=== PATIENT | male | born 1975 | race Asian ===

== ENCOUNTER 2023-05-01 12:07 | Inpatient (IN) | payer OTHER ==
[~2023-05-01] VITALS: Ht 182.9 cm; Wt 91.5 kg
[2023-05-01] MEDS ORDERED: NS 1,000 ML IV SCH ×4 (13:45→19:00)
[2023-05-01] MEDS ORDERED: Acetaminophen 500 MG Tab PO ONE (14:15)
[2023-05-01 14:33] LABS: International Normalized Ratio 3.69
[2023-05-01 14:39] LABS: Albumin, Blood 1.7 g/dL (3.4-5.0); Albumin/Globulin Ratio 0.3 (0.8-1.8); Bilirubin, Direct 4.6 mg/dL (0.0-0.3); Bilirubin, Total 5.6 mg/dL (0.1-1.0); Bun/Creatinine Ratio 16.5 (12.0-20.0); Calcium, Blood 8.3 mg/dL (8.5-10.1); Creatinine, Blood 2.12 mg/dL (0.60-1.20); Globulin, Blood 4.9 g/dL (2.2-4.0); Potassium, Blood 3.6 mmol/L (3.5-5.5); Total Protein, Blood 6.6 g/dL (6.4-8.2)
[2023-05-01 14:53] LABS: Influenza A, PCR NEGATIVE (NEGATIVE); Influenza B, PCR NEGATIVE (NEGATIVE); Resp Syncytial Virus, PCR NEGATIVE (NEGATIVE); SARS-Cov-2 (COVID-19) PCR, MMC NEGATIVE (NEGATIVE)
[2023-05-01] MEDS ORDERED: Azithromycin 250 MG Tab PO ONE (14:55)
[2023-05-01] MEDS ORDERED: Sodium Bicarb 8.4% 1 MEQ/ML 50 ML Vial IV ONE (16:05)
[2023-05-01 16:20] LABS: Base Excess Venous -17.7 mmol/L; Bicarbonate Venous 12.1 mmol/L (24.0-30.0); PCO2 Venous 21.7 mmHg (38-42); pH Blood Venous 7.25 (7.34-7.37)
[2023-05-01 17:07] LABS: Source, Urine Clean Catch
[2023-05-01] MEDS ORDERED: Sodium Bicarb 8.4% 1 MEQ/ML 50 ML Vial ONE (17:08)
[2023-05-01 17:09] LABS: Appearance, Urine Hazy (Clear); Blood, Urine 5+ (Neg); Color, Urine Amber (P-Yellow); Glucose Qualitative, Urine Neg (Neg); Ketones, Urine Neg (Neg); Leukocyte Esterase, Urine 1+ (Neg); Nitrite, Urine Neg (Neg); Protein, Urine 2+ (Neg); Specific Gravity, Urine 1.025 (1.003-1.022); Urobilinogen, Urine 1+ (Normal)
[2023-05-01 17:25] LABS: Bilirubin, Urine 2+ (Neg)
[2023-05-01] MEDS ORDERED: FLU VACC QS2023-24(6MOS UP)/PF 60 MCG/0.5 ML SYRINGE IM SCH (17:25)
[2023-05-01] MEDS ORDERED: Magnesium Hydroxide Conc 10 ML UDC PO PRN (17:25)
[2023-05-01 17:26] LABS: Bacteria Many /hpf; Hyaline Casts 0-2 /lpf (0-2); Renal Epithelial Rare /hpf (0-Rare); Squamous Epithelial Cells Few /hpf (Few)
[2023-05-01] MEDS ORDERED: Azithromycin 500 MG in NS 250 ML IV SCH (18:00)
[2023-05-01 18:01] LABS: Percent Saturation 5.7 % (20.0-50.0)
[2023-05-01 19:00] VITALS: BP 92/54
[2023-05-01 19:30] VITALS: BP 101/58
[2023-05-01 20:00] VITALS: BP 96/56
[2023-05-01 20:30] VITALS: BP 94/56
[2023-05-01 21:00] VITALS: BP 89/56
[2023-05-01] MEDS ORDERED: Lactobacil 2-S.Thermo-Bifido 1 1 Cap PO SCH (21:00)
[2023-05-01 21:17] LABS: Source, Urine Foley catheter
[2023-05-01 21:23] LABS: Appearance, Urine Hazy (Clear); Blood, Urine 5+ (Neg); Color, Urine Amber (P-Yellow); Glucose Qualitative, Urine Neg (Neg); Ketones, Urine Neg (Neg); Leukocyte Esterase, Urine 1+ (Neg); Nitrite, Urine Neg (Neg); Protein, Urine 2+ (Neg); Specific Gravity, Urine 1.025 (1.003-1.022); Urobilinogen, Urine 1+ (Normal)
[2023-05-01 21:27] LABS: Acetaminophen, Random 11.9 ug/mL (10.0-30.0); Magnesium, Blood 1.6 mg/dL (1.6-2.4); Phosphorus, Blood 4.8 mg/dL (2.5-4.9)
[2023-05-01 21:31] LABS: Bilirubin, Urine 2+ (Neg)
[2023-05-01 21:33] LABS: Bacteria Many /hpf; Hyaline Casts 0-2 /lpf (0-2); Renal Epithelial Rare /hpf (0-Rare); Squamous Epithelial Cells Rare /hpf (Few)
[2023-05-01] MEDS ORDERED: DEXTROSE 5% IV STA (21:45)
[2023-05-01] MEDS ORDERED: ACETYLCYSTEINE IV STA (21:45)
[2023-05-01] MEDS ORDERED: Magnesium Sulf 2 GM/Water 50ML 50 ML IV STA (22:06)
[2023-05-01 23:01] VITALS: BP 85/52
[2023-05-02] VITALS (82 sets, daily range): BP systolic 84–121; BP diastolic 47–85
[2023-05-02] MEDS ORDERED: Vasopressin 50 UNITS in NS 50 ML IV SCH (01:05)
[2023-05-02 02:55] LABS: Hematocrit 26.4 % (37.0-53.0); Hemoglobin 8.6 g/dL (13.5-17.5); Mean Corpuscular HGB 28.9 pg (26.0-34.0); Mean Corpuscular HGB Conc 32.6 g/dL (31.5-36.5); Mean Corpuscular Volume 89 fL (80-100); Mean Platelet Volume 11.2 fL (9.1-12.4); NRBC ABSOLUTE 0.11 K/mm3 (0.00-0.02); NRBC Auto 0.4 /100 WBC (0.0-0.2); RDW Coefficient Variation 17.2 % (11.7-14.2); RDW Standard Deviation 55.9 fL (35.1-46.3); Red Blood Cell Count 2.98 M/mm3 (4.30-5.90); White Blood Cell Count 26.96 K/mm3 (4.00-11.30)
[2023-05-02 03:07] LABS: Albumin, Blood 1.3 g/dL (3.4-5.0); Albumin/Globulin Ratio 0.3 (0.8-1.8); Bilirubin, Total 5.2 mg/dL (0.1-1.0); Bun/Creatinine Ratio 16.8 (12.0-20.0); Calcium, Blood 7.2 mg/dL (8.5-10.1); Creatinine, Blood 2.2 mg/dL (0.60-1.20); Globulin, Blood 4.6 g/dL (2.2-4.0); Magnesium, Blood 2.1 mg/dL (1.6-2.4); Phosphorus, Blood 4.4 mg/dL (2.5-4.9); Total Protein, Blood 5.9 g/dL (6.4-8.2)
[2023-05-02 03:18] LABS: Prothrombin Time Results 46.3 Sec (9.7-11.5)
[2023-05-02 03:28] LABS: International Normalized Ratio 4.82; Platelet Count 40 K/mm3 (150-400)
[2023-05-02] MEDS ORDERED: Dextrose 50% 50 ML Syringe IV ONE (04:00)
[2023-05-02 06:05] LABS: BAND PERCENT MAN 22 % (0-8); BASOPHILS PERCENT MAN 0 % (0-2); EOSINOPHILS PERCENT MAN 0 % (0-6); LYMPHOCYTES ABSOLUTE MAN 1.07 K/mm3 (0.84-5.20); LYMPHOCYTES PERCENT MAN 4 % (21-46); MONOCYTES ABSOLUTE MAN 1.61 K/mm3 (0.16-1.47); MONOCYTES PERCENT MAN 6 % (4-13); NEUTROPHILS ABSOLUTE MAN 24.26 K/mm3 (1.96-9.15); SEG NEUTROPHILS PERCENT MAN 68 % (41-73); TOTAL CELLS COUNTED 100
--- NOTE | 2023-05-02 06:17 | NUR ---
END OF SHIFT SUMMARY PT A/O X3 WITH SOME CONFUSION AT TIMES. RESP- RA SPO2 >95%. RR 20'S. CARDIAC- LEVO AT 16 MCG/MIN WITH MAP >65. VASOPRESSIN RUNNING AT THIS TIME WELL. ST WITH HR 110'S. GI,-HARLEY CATH PLACED IN ED DRAINING TO GRAVITY. NO BM AFTER TWO ATTEMPTS. 3RD BAG OF NEC RUNNING PER EMAR ORDERS. 5 LITERS OF NS FLUIDS TOTAL GIVEN TO PT FROM URGENT CARE THROUGH ED AND ADMIT TO ICU UNIT. BLE PITTING EDEMA PRESENT. PT IS WEAK IN ALL EXTREMETIES. CONTINUING TO MONITOR UNTIL REPORT GIVEN TO AM RN.
--- NOTE | 2023-05-02 07:58 | NUR ---
AM NOTE... ASSUMED CARE OF PT AT 0700. PT IS A&O TO SELF, FAMILY, TOWN AND PRESIDENT BUT SAID THE YEAR WAS 1993. HE IS IN SINUS TACH 100'S-110'S. ON LEVOPHED AT 16MCG/MIN AND VASOPRESSIN AT 0.04U/HR TO KEEP MAPS >70 PER ORDERS. PT HAS 3+ PITTING EDEMA TO HIS BLE. HE IS ON RA WITH O2 SATS>95% L/S CLEAR T/O DIM IN THE BASES. ABD HAS DISTENTION AND IS TENDER TO PALPATION ON THE RIGHT SIDE. BT PRESENT AND NORMOACTIVE. PT IS JAUNDICED AND LETHARGIC AT THIS TIME. WILL CONTINUE TO MONITOR.
[2023-05-02] MEDS ORDERED: NS 250 ML IV PRN (08:35)
[2023-05-02] MEDS ORDERED: CefTRIAXone Sodium 2,000 MG in NS 100 ML IV SCH (09:00)
[2023-05-02] MEDS ORDERED: Thiamine HCl 250 MG in NS 100 ML IV SCH (09:00)
[2023-05-02] MEDS ORDERED: Phytonadione 10 MG in NS 50 ML IV ONE (11:05)
[2023-05-02] MEDS ORDERED: Folic Acid 1 MG in NS 50 ML IV SCH (14:50)
[2023-05-02 15:48] LABS: Hematocrit 26.5 % (37.0-53.0); Mean Corpuscular HGB 29.3 pg (26.0-34.0); Mean Corpuscular Volume 86 fL (80-100); NRBC ABSOLUTE 0.13 K/mm3 (0.00-0.02); NRBC Auto 0.4 /100 WBC (0.0-0.2); RDW Coefficient Variation 17.1 % (11.7-14.2); RDW Standard Deviation 52.8 fL (35.1-46.3); Red Blood Cell Count 3.07 M/mm3 (4.30-5.90); White Blood Cell Count 29.73 K/mm3 (4.00-11.30)
[2023-05-02 15:55] LABS: Platelet Count 26 K/mm3 (150-400)
[2023-05-02 16:05] LABS: Albumin, Blood 1.2 g/dL (3.4-5.0); Albumin/Globulin Ratio 0.3 (0.8-1.8); Bilirubin, Total 6.5 mg/dL (0.1-1.0); Bun/Creatinine Ratio 20.4 (12.0-20.0); Calcium, Blood 7.2 mg/dL (8.5-10.1); Creatinine, Blood 2.06 mg/dL (0.60-1.20); Globulin, Blood 4.6 g/dL (2.2-4.0); Potassium, Blood 3.9 mmol/L (3.5-5.5); Total Protein, Blood 5.8 g/dL (6.4-8.2)
[2023-05-02 16:22] LABS: BAND PERCENT MAN 13 % (0-8); BASOPHILS PERCENT MAN 0 % (0-2); EOSINOPHILS PERCENT MAN 0 % (0-6); LYMPHOCYTES % ATYPICAL MANUAL 2 % (0-0); LYMPHOCYTES ABSOLUTE MAN 2.37 K/mm3 (0.84-5.20); LYMPHOCYTES PERCENT MAN 6 % (21-46); MONOCYTES ABSOLUTE MAN 3.56 K/mm3 (0.16-1.47); MONOCYTES PERCENT MAN 12 % (4-13); MYELOCYTE ABSOLUTE MAN 0.59 K/mm3 (0.00-0.00); MYELOCYTE PERCENT MAN 2 % (0-0); NEUTROPHILS ABSOLUTE MAN 23.18 K/mm3 (1.96-9.15); SEG NEUTROPHILS PERCENT MAN 65 % (41-73); TOTAL CELLS COUNTED 100
[2023-05-02] MEDS ORDERED: Vancomycin HCL 1,500 MG in NS 250 ML IV SCH (17:00)
--- NOTE | 2023-05-02 17:43 | NUR ---
SHIFT SUMMARY... THE PT CONTINUES TO BE ON LEVOPHED THIS HAS BEEN TITRATED DOWN FROM 16 TO 12 WITH MAPS 70-75. VASOPRESSIN CONTINUES TO RUN AT 0.04U/HR. URINARY OUTPUT FOR THIS SHIFT HAS BEEN 525MLS. PT HAS NOT HAD A BM THIS SHIFT. NAC CONTINUES TO RUN PER ORDERS. PT CONTINUES TO HAVE CONFUSION. HE HAS BEEN AFEBRILE T/O THIS SHIFT. THE PT C/O OF MODERATE PAIN TO HIS LEFT ARM A HEATING PAD WAS APPLIED PER PT AND FAMILY REQUEST. L/S CONTINUE TO BE CLEAR T/O DIM IN THE BASES AND HE CONTINUES ON RA. THE PT'S FAMILY HAS BEEN AT THE BEDSIDE T/O THIS SHIFT. THE PT HAS REFUSED ORAL CARE AND TURNS OFF AND ON T/O THIS SHIFT. CALL LIGHT IN REACH WILL CONTINUE TO MONITOR UNTIL REPORT IS GIVEN TO ONCOMING RN.
[2023-05-02] MEDS ORDERED: Zolpidem Tartrate 5 MG Tab PO PRN (18:55)
--- NOTE | 2023-05-02 20:02 | NUR ---
ASSUMPTION OF CARE: RECEIVED REPORT FROM DONN PFEIFFER. PT ALERT AND ORIENTED TO PERSON AND SELF. PT CONFUSED AT TIMES BUT EASILY REDIRECTABLE. ABLE TO ANSWER SIMPLE QUESTIONS AND MAKE NEEDS KNOWN. PT ON RA WITH SPO2 >95%. DENIES SOB. 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 LEVOPHED INFUSING AT 14 MCG/MIN, WITH VASOPRESSIN AT 0.04 UNITS/ MIN TO MAINTAIN MAP >70. PT DENIES ANY CHEST PAIN OR PRESSURE. CENTRAL LINE TO LEFT IJ, PATENT AND INFUSING. PIV TO RAC, PATENT AND SALINE LOCKED. PT ENDORSES PAIN IN LEFT LOWER ARM, ARM IS WARM TO TOUCH AND EDEMETOUS. LOWER EXTREMETIES EDEMETOUS BILATERALLY. HARLEY IN PLACE, DRAINING TO GRAVITY. NO BM YET. FAMILY AT BEDSIDE, UPDATED TO PLAN OF CARE.
[2023-05-02 21:55] LABS: Hematocrit 25.9 % (37.0-53.0); Hemoglobin 8.7 g/dL (13.5-17.5); Mean Corpuscular HGB 28.6 pg (26.0-34.0); Mean Corpuscular HGB Conc 33.6 g/dL (31.5-36.5); Mean Corpuscular Volume 85 fL (80-100); NRBC ABSOLUTE 0.09 K/mm3 (0.00-0.02); NRBC Auto 0.3 /100 WBC (0.0-0.2); RDW Coefficient Variation 16.9 % (11.7-14.2); Red Blood Cell Count 3.04 M/mm3 (4.30-5.90); White Blood Cell Count 27.51 K/mm3 (4.00-11.30)
[2023-05-02 22:04] LABS: Platelet Count 20 K/mm3 (150-400)
[2023-05-02] MEDS ORDERED: Albumin (Human) 12.5gm/250ml 250 ML IV ONE (22:05)
[2023-05-02 22:31] LABS: Prothrombin Time Results 40.7 Sec (9.7-11.5)
[2023-05-02 22:33] LABS: International Normalized Ratio 4.2
[2023-05-02 22:50] LABS: BAND PERCENT MAN 21 % (0-8); BASOPHILS PERCENT MAN 0 % (0-2); EOSINOPHILS ABSOLUTE MAN 0.27 K/mm3 (0.00-0.68); EOSINOPHILS PERCENT MAN 1 % (0-6); LYMPHOCYTES ABSOLUTE MAN 2.47 K/mm3 (0.84-5.20); LYMPHOCYTES PERCENT MAN 9 % (21-46); MONOCYTES ABSOLUTE MAN 2.47 K/mm3 (0.16-1.47); MONOCYTES PERCENT MAN 9 % (4-13); MYELOCYTE ABSOLUTE MAN 0.27 K/mm3 (0.00-0.00); MYELOCYTE PERCENT MAN 1 % (0-0); SEG NEUTROPHILS PERCENT MAN 59 % (41-73); TOTAL CELLS COUNTED 100
--- NOTE | 2023-05-02 23:10 | NUR ---
UPDATE: DR. PATEL AT BEDSIDE TO EVALUATE PT AFTER NOTIFICATION FROM IMAGING REGARDING HEAD CT. DR. PATEL SPOKE WITH ICU CHARGE REGARDING PT CONDITION. CALL PLACED TO [facility] TRANSFER STATION WITH NO NEW INTERVENTIONS AT THIS TIME. DR. PATEL SPOKE WITH FAMILY REGARDING CT SCAN RESULTS, WILL CONTINUE TO MONITOR PT. AFTER SPEAKING WITH FAMILY ABOUT NEED TO TRANSFUSE PLATELETS THE FAMILY DECIDED TO GO AHEAD AND PROCEED. NEW BLOOD CONSENT OBTAINED AND IN CHART.
[2023-05-03] VITALS (92 sets, daily range): BP systolic 91–122; BP diastolic 53–79
[2023-05-03 04:09] LABS: Mean Corpuscular HGB 28.2 pg (26.0-34.0); Mean Corpuscular HGB Conc 33.3 g/dL (31.5-36.5); Mean Corpuscular Volume 85 fL (80-100); NRBC ABSOLUTE 0.06 K/mm3 (0.00-0.02); NRBC Auto 0.3 /100 WBC (0.0-0.2); RDW Coefficient Variation 16.6 % (11.7-14.2); RDW Standard Deviation 50.6 fL (35.1-46.3); Red Blood Cell Count 2.84 M/mm3 (4.30-5.90); White Blood Cell Count 22.24 K/mm3 (4.00-11.30)
[2023-05-03 04:15] LABS: Platelet Count 30 K/mm3 (150-400)
[2023-05-03 04:23] LABS: International Normalized Ratio 3.3
[2023-05-03 04:26] LABS: Albumin, Blood 1.4 g/dL (3.4-5.0); Albumin/Globulin Ratio 0.4 (0.8-1.8); Bilirubin, Total 7.4 mg/dL (0.1-1.0); Bun/Creatinine Ratio 24.2 (12.0-20.0); Calcium, Blood 7.4 mg/dL (8.5-10.1); Creatinine, Blood 1.94 mg/dL (0.60-1.20); Potassium, Blood 3.5 mmol/L (3.5-5.5); Total Protein, Blood 5.4 g/dL (6.4-8.2)
[2023-05-03 04:34] LABS: Prothrombin Time Results 32.4 Sec (9.7-11.5)
[2023-05-03 04:39] LABS: BAND PERCENT MAN 12 % (0-8); BASOPHILS PERCENT MAN 0 % (0-2); EOSINOPHILS ABSOLUTE MAN 0.22 K/mm3 (0.00-0.68); EOSINOPHILS PERCENT MAN 1 % (0-6); LYMPHOCYTES ABSOLUTE MAN 1.55 K/mm3 (0.84-5.20); LYMPHOCYTES PERCENT MAN 7 % (21-46); MONOCYTES ABSOLUTE MAN 3.33 K/mm3 (0.16-1.47); MONOCYTES PERCENT MAN 15 % (4-13); NEUTROPHILS ABSOLUTE MAN 17.12 K/mm3 (1.96-9.15); SEG NEUTROPHILS PERCENT MAN 65 % (41-73); TOTAL CELLS COUNTED 100
--- NOTE | 2023-05-03 06:34 | NUR ---
SHIFT SUMMARY: PT REMAINS ALERT AND ORIENTED TO PERSON ,PLACE AND SELF. ABLE TO ANSWER SIMPLE QUESTIONS BUT BECOMES EASILY CONFUSED. PT STATES HE IS AT HIS HOME AT TIMES AND THE YEAR IS 2001. OTHER TIMES HE ANSWERS APPROPRIATELY. PT NOT ABLE TO SLEEP AT ALL T/O THE SHIFT. PT RIGHT PUPIL REMAINS LARGER THAN LEFT, REACTIVE BILATERALLY. PT REMAINS ON RA WITH SPO2 >94%. DENIES SOB. LUNG SOUNDS CLEAR T/O AND DIM IN THE BASES. 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 DENIES CHEST PAIN OR PRESSURE. LEVOPHED AT 10 MCG/MIN, VASOPRESSIN 0.04 UNITS/MIN, TITRATED TO MAINTAIN MAP >70. PT LEFT LOWER ARM CONTINUES TO BE WARM TO THE TOUCH AND EDEMETOUS. PT ENDORSES FEELING PAIN IN THE LEFT ARM THAT IS CONTINUAL T/O THE SHIFT. LOWER EXTREMETIES 3+ EDEMA BILATERALLY. PT HAS LIMITED MOVEMENT IN LOWER EXTREMETIES AND IS NOTICEABLY WEAKER IN THE LEFT ARM. CENTRAL LINE TO LIJ REMAINS PATENT AND INFUSING. PIV TO RAC, SALINE LOCKED. HARLEY IN PLACE, PATENT AND DRAINING TO GRAVITY. ONE DARK COLORED STOOL THIS SHIFT. PT HAS BLEEDING FROM GUMS/MOUTH, NOTED WITH ORAL CARE. FAMILY CONTINUES TO REMAIN AT THE BEDSIDE T/O THE SHIFT, UPDATED FREQUENTLY TO PT CONDITION. CALL LIGHT IN REACH, BED LOW AND LOCKED.
[2023-05-03 10:46] LABS: HAPTOGLOBIN <10 mg/dL (30-200)
[2023-05-03] MEDS ORDERED: Ampicillin Sod/Sulbactam Sod 3 GM in NS 100 ML IV SCH (12:00)
[2023-05-03] MEDS ORDERED: CeFAZolin Sodium 2,000 MG in NS 50 ML IV SCH (12:00)
[2023-05-03 12:27] LABS: Base Excess Venous -0.5 mmol/L; Bicarbonate Venous 24.2 mmol/L (24.0-30.0); PCO2 Venous 33.3 mmHg (38-42); pH Blood Venous 7.46 (7.34-7.37)
[2023-05-03 14:33] LABS: Hematocrit 25.4 % (37.0-53.0); Hemoglobin 8.6 g/dL (13.5-17.5); Mean Corpuscular HGB 28.7 pg (26.0-34.0); Mean Corpuscular HGB Conc 33.9 g/dL (31.5-36.5); Mean Corpuscular Volume 85 fL (80-100); NRBC ABSOLUTE 0.07 K/mm3 (0.00-0.02); NRBC Auto 0.3 /100 WBC (0.0-0.2); RDW Coefficient Variation 16.8 % (11.7-14.2); White Blood Cell Count 20.76 K/mm3 (4.00-11.30)
[2023-05-03 14:40] LABS: Platelet Count 23 K/mm3 (150-400)
[2023-05-03 15:06] LABS: Albumin, Blood 1.4 g/dL (3.4-5.0); Albumin/Globulin Ratio 0.3 (0.8-1.8); Bilirubin, Total 8.9 mg/dL (0.1-1.0); Bun/Creatinine Ratio 30.3 (12.0-20.0); Calcium, Blood 7.5 mg/dL (8.5-10.1); Creatinine, Blood 1.78 mg/dL (0.60-1.20); Globulin, Blood 4.3 g/dL (2.2-4.0); Magnesium, Blood 2.5 mg/dL (1.6-2.4); Phosphorus, Blood 3.2 mg/dL (2.5-4.9); Potassium, Blood 3.6 mmol/L (3.5-5.5); Total Protein, Blood 5.7 g/dL (6.4-8.2)
[2023-05-03 15:24] LABS: BAND PERCENT MAN 5 % (0-8); BASOPHILS PERCENT MAN 1 % (0-2); EOSINOPHILS PERCENT MAN 1 % (0-6); LYMPHOCYTES ABSOLUTE MAN 1.86 K/mm3 (0.84-5.20); LYMPHOCYTES PERCENT MAN 9 % (21-46); MONOCYTES ABSOLUTE MAN 1.24 K/mm3 (0.16-1.47); MONOCYTES PERCENT MAN 6 % (4-13); NEUTROPHILS ABSOLUTE MAN 17.23 K/mm3 (1.96-9.15); SEG NEUTROPHILS PERCENT MAN 78 % (41-73); TOTAL CELLS COUNTED 100
[2023-05-03 17:04] LABS: Vancomycin, Trough 16.4 ug/mL (5.0-10.0)
--- NOTE | 2023-05-03 18:15 | NUR ---
DAY SHIFT SUMMARY PT MENTATION DECREASED THROUGHOUT THE DAY BECOMING MORE SLEEPY AND SOMNOLENT. PER FAMILY, PT HAS NOT SLEPT WELL IN SEVERAL DAYS. WAKES UP WHEN BATHING AND ABLE TO VERBALIZE CLEARLY BUT FALLS BACK TO SLEEP. REPEAT HEAD CT THIS AM REVEALED NO CHANGES. ST 130'S TO 140'S. BP SUPPORTED WITH LEVOPHED AND VASOPRESSIN. TITRATED TO MAINTAIN MAP > 65. 02 VIA NC STARTED TODAY DUE TO DECREASING HEMOGLOBIN. PT TOLERATED WELL. O2 SATS REMAIN 100%. LUNGS CTA, RESPIRATIONS SHALLOW. NPO DUE TO SOMNOLENCE. DENIES NAUSEA. HARLEY PATENT AND DRAINING ICTERIC URINE. SKIN INTACT BUT JAUNDICED. PIV RIGHT AC FLUSHED, DOES NOT WITHDRAW BLOOD. CENTRAL LINE TO LEFT IJ, DSG C/D/I. MULTIPLE FAMILY MEMBERS AT BEDSIDE, ALL QUESTIONS ANSWERED AND SUPPORT PROVIDED. POC ONGOING.
--- NOTE | 2023-05-03 19:15 | NUR ---
ASSUMPTION OF CARE: RECEIVED REPORT FROM JOE PFEIFFER. PT SOMNOLENT. WAKES UP TO PAINFUL STIMULI. NOT ANSWERING QUESTIONS. PT MUMBLING. OPENS EYES AND QUICKLY GOES BACK TO SLEEP. PT ON 2L NC WITH SPO2 >95%. GROUP HOME WORKER IN PLACE, ST WITH HR 140'S. LEVOPHED AT 10 MCG/MIN, VASOPRESSIN AT 0.04 UNITS/MIN, TITRATED TO MAINTAIN MAP >65. CENTRAL LINE TO LIJ, PATENT AND INFUSING. PIV TO RAC, SALINE LOCKED. HARLEY IN PLACE, DRAINING TO GRAVITY. LEFT ARM SWOLLEN AND WARM TO TOUCH. CALL PLACED TO DR. PATEL REGARDING PT MENTATION, ORDER FOR REPEAT HEAD CT. FAMILY AT BEDSIDE AND UPDATED TO PLAN OF CARE. CALL LIGHT IN REACH, BED LOW AND LOCKED.
[2023-05-03 22:33] LABS: Hematocrit 24.4 % (37.0-53.0); Hemoglobin 8.4 g/dL (13.5-17.5); Mean Corpuscular HGB 28.8 pg (26.0-34.0); Mean Corpuscular HGB Conc 34.4 g/dL (31.5-36.5); Mean Corpuscular Volume 84 fL (80-100); NRBC ABSOLUTE 0.06 K/mm3 (0.00-0.02); NRBC Auto 0.3 /100 WBC (0.0-0.2); RDW Coefficient Variation 16.5 % (11.7-14.2); RDW Standard Deviation 49.7 fL (35.1-46.3); Red Blood Cell Count 2.92 M/mm3 (4.30-5.90); White Blood Cell Count 19.98 K/mm3 (4.00-11.30)
[2023-05-03 22:39] LABS: Platelet Count 19 K/mm3 (150-400)
[2023-05-03 22:53] LABS: BAND PERCENT MAN 11 % (0-8); BASOPHILS PERCENT MAN 0 % (0-2); EOSINOPHILS ABSOLUTE MAN 0.19 K/mm3 (0.00-0.68); EOSINOPHILS PERCENT MAN 1 % (0-6); LYMPHOCYTES % ATYPICAL MANUAL 1 % (0-0); LYMPHOCYTES ABSOLUTE MAN 1.39 K/mm3 (0.84-5.20); LYMPHOCYTES PERCENT MAN 6 % (21-46); METAMYELOCYTE ABSOLUTE MAN 0.19 K/mm3 (0.00-0.00); METAMYELOCYTE PERCENT MAN 1 % (0-0); MONOCYTES ABSOLUTE MAN 2.99 K/mm3 (0.16-1.47); MONOCYTES PERCENT MAN 15 % (4-13); MYELOCYTE ABSOLUTE MAN 0.19 K/mm3 (0.00-0.00); MYELOCYTE PERCENT MAN 1 % (0-0); NEUTROPHILS ABSOLUTE MAN 14.98 K/mm3 (1.96-9.15); SEG NEUTROPHILS PERCENT MAN 64 % (41-73); TOTAL CELLS COUNTED 100
--- NOTE | 2023-05-03 23:22 | NUR ---
UPDATE: PT WAKING UP AND ANSWERING SOME SIMPLE QUESTIONS. CALL PLACED TO DR. PATEL WITH LAB RESULTS. ORDER TO TRANSFUSE ONE UNIT PLATELETS. FAMILY UPDATED.
[2023-05-04] VITALS (96 sets, daily range): BP systolic 91–125; BP diastolic 47–76
[2023-05-04 04:51] LABS: Hematocrit 23.5 % (37.0-53.0); Hemoglobin 8.1 g/dL (13.5-17.5); Mean Corpuscular HGB 28.8 pg (26.0-34.0); Mean Corpuscular HGB Conc 34.5 g/dL (31.5-36.5); Mean Corpuscular Volume 84 fL (80-100); Mean Platelet Volume 11.2 fL (9.1-12.4); NRBC ABSOLUTE 0.07 K/mm3 (0.00-0.02); NRBC Auto 0.3 /100 WBC (0.0-0.2); RDW Coefficient Variation 16.3 % (11.7-14.2); RDW Standard Deviation 49.8 fL (35.1-46.3); Red Blood Cell Count 2.81 M/mm3 (4.30-5.90); White Blood Cell Count 21.43 K/mm3 (4.00-11.30)
[2023-05-04 04:59] LABS: Platelet Count 41 K/mm3 (150-400)
[2023-05-04 05:11] LABS: International Normalized Ratio 2.63; Prothrombin Time Results 26.1 Sec (9.7-11.5)
[2023-05-04 05:25] LABS: Albumin, Blood 1.5 g/dL (3.4-5.0); Albumin/Globulin Ratio 0.4 (0.8-1.8); Bilirubin, Total 10.4 mg/dL (0.1-1.0); Bun/Creatinine Ratio 39.7 (12.0-20.0); Calcium, Blood 7.6 mg/dL (8.5-10.1); Creatinine, Blood 1.51 mg/dL (0.60-1.20); Potassium, Blood 3.6 mmol/L (3.5-5.5); Total Protein, Blood 5.5 g/dL (6.4-8.2)
[2023-05-04 05:39] LABS: BAND PERCENT MAN 11 % (0-8); BASOPHILS ABSOLUTE MAN 0.21 K/mm3 (0.00-0.23); BASOPHILS PERCENT MAN 1 % (0-2); EOSINOPHILS ABSOLUTE MAN 0.42 K/mm3 (0.00-0.68); EOSINOPHILS PERCENT MAN 2 % (0-6); LYMPHOCYTES ABSOLUTE MAN 0.64 K/mm3 (0.84-5.20); LYMPHOCYTES PERCENT MAN 3 % (21-46); MONOCYTES ABSOLUTE MAN 2.35 K/mm3 (0.16-1.47); MONOCYTES PERCENT MAN 11 % (4-13); NEUTROPHILS ABSOLUTE MAN 17.78 K/mm3 (1.96-9.15); SEG NEUTROPHILS PERCENT MAN 72 % (41-73); TOTAL CELLS COUNTED 100
--- NOTE | 2023-05-04 06:18 | NUR ---
SHIFT SUMMARY: PT CONTINUES TO REMAIN SOMNOLENT T/O THE SHIFT BUT IS WAKING UP MORE T/O THE SHIFT, ABLE TO ANSWER SOME SIMPLE QUESTIONS. PT STILL CONFUSED AT TIMES. 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 ABLE TO STATE THE YEAR AT TIMES BUT OTHER TIMES STATES IT IS 2019. PT ON 2L NC WITH SPO2 >95%. DENIES SOB. PARALEGALS IN PLACE, ST WITH HR 100'S-140'S. DENIES CHEST PAIN OR PRESSURE. RIGHT PUPIL REMAINS LARGER THAN LEFT, REACTIVE BILATERALLY. 3+ EDEMA IN LOWER EXTREMETIES. 2+ EDEMA IN LEFT ARM. MINIMAL MOVEMENT IN LOWER EXTREMETIES. HARLEY IN PLACE, DRAINING DARK, YELLOW URINE. CENTRAL LINE TO LIJ, PATENT AND INFUSING. LEVOPHED AT 6 MCG/MIN. VASOPRESSIN ON SB. MAPS >65. RIGHT AC PIV, SALINE LOCKED. FAMILY REMAINS AT BEDSIDE T/O THE SHIFT, UPDATED FREQUENTLY. BED LOW AND LOCKED, CALL LIGHT IN REACH.
[2023-05-04] MEDS ORDERED: Docusate Sodium 100 MG UDC PT PRN (12:35)
[2023-05-04 16:43] LABS: HEPATITIS A ANTIBODY, IGM Negative (Negative); HEPATITIS B CORE ANTIBODY, IGM Negative (Negative); HEPATITIS B SURFACE ANTIGEN Negative (Negative); HEPATITIS C AB CIA INTERP Negative (Negative); HEPATITIS C ANTIBODY CIA INDEX 0.65 IV
--- NOTE | 2023-05-04 17:06 | NUR ---
SHIFT SUMMARY NO ACUTE CHANGES THIS SHIFT. PT REMAINS LETHARGIC, BUT AROUSEABLE TO VERBAL STIMULI. PT QUICKLY FALLS BACK TO SLEEP WHEN UNDISTURBED. PT IS ABLE TO MUMBLE SOME WORDS, BUT SPEECH IS DIFFICULT TO UNDERSTAND. PT ABLE TO SQUEEZE HANDS UPON COMMAND. PT UNABLE TO MAINTAIN ALERTNESS FOR PO INTAKE. DOBHOFF PLACED THIS MORNING AND TF STARTED PER ORDERS. PT TAKEN TO CT WITHOUT COMPLICATIONS. PT REMAINS ON 2L O2 NC. VITAL SIGNS HAVE REMAINED STABLE WITH LEVOPHED INFUSING AT 6 MCG/MIN AND NS TKO. CL TO LIJ REMAINS C/D/I. HARLEY REMAINS IN PLACE WITH DARK ORANGE URINE OUTPUT NOTED. MULTIPLE FAMILY MEMBERS IN AND OUT THROUGHOUT THE SHIFT. FAMILY PROVIDED WITH MULTIPLE EXTENSIVE UPDATES THROUGHOUT THIS SHIFT BY DR MIMS AND THIS RN. WILL CONTINUE TO MONITOR AND REPORT OFF TO ONCOMING RN.
--- NOTE | 2023-05-04 19:00 | NUR ---
ASSUMED CARE ASSUMED CARE OF PATIENT. PT IS RESTING QUIETLY WHEN UNDISTURBED. MULTIPLE FAMILY MEMBERS AT BEDSIDE. PT ROUSES SLIGHTLY TO VERBAL STIMULI. MOVES ALL EXTREMITIES, BUT IS NOT FOLLOWING COMMANDS AT THIS TIME. MONITOR SHOWS ST, RATE 100-105. LEVOPHED INFUSING AT 6MCG/MIN TO MAINTAIN MAP >65. DOBHOFF WITH JEVITY 1.5 INFUSING AT 25MLS/HR- GOAL IS 65MLS/HR. HARLEY PATENT AND DRAINING TO GRAVITY- ORANGE URINE. LIJ CENTRAL LINE NOTED. SEE SHIFT ASSESSMENT FOR FULL ASSESSMENT.
--- NOTE | 2023-05-04 21:30 | NUR ---
RESTLESSNESS PT WITH INCREASED RESTLESSNESS- THRASHING LEGS IN BED, THROWING LEGS OVER SIDE OF BED, AND FREQUENTLY REACHING FOR DOBHOFF. CALL TO FRANSISCO REESE NP- NEW ORDER RECEIVED FOR ATIVAN. FAMILY REMAINS AT BEDSIDE.
[2023-05-04] MEDS ORDERED: LORazepam 2 MG/ML 1ML Injection IV PRN (21:35)
[2023-05-05] VITALS (84 sets, daily range): BP systolic 93–133; BP diastolic 47–89
[2023-05-05 04:56] LABS: Hematocrit 23.7 % (37.0-53.0); Mean Corpuscular HGB 28.1 pg (26.0-34.0); Mean Corpuscular HGB Conc 33.8 g/dL (31.5-36.5); Mean Corpuscular Volume 83 fL (80-100); NRBC ABSOLUTE 0.15 K/mm3 (0.00-0.02); NRBC Auto 0.6 /100 WBC (0.0-0.2); RDW Coefficient Variation 16.3 % (11.7-14.2); RDW Standard Deviation 49.9 fL (35.1-46.3); Red Blood Cell Count 2.85 M/mm3 (4.30-5.90); White Blood Cell Count 24.16 K/mm3 (4.00-11.30)
[2023-05-05 05:09] LABS: Platelet Count 30 K/mm3 (150-400)
[2023-05-05 05:13] LABS: International Normalized Ratio 2.63; Prothrombin Time Results 26.1 Sec (9.7-11.5)
[2023-05-05 05:26] LABS: Albumin, Blood 1.4 g/dL (3.4-5.0); Albumin/Globulin Ratio 0.3 (0.8-1.8); Bilirubin, Total 12.6 mg/dL (0.1-1.0); Bun/Creatinine Ratio 45.6 (12.0-20.0); Calcium, Blood 7.8 mg/dL (8.5-10.1); Creatinine, Blood 1.69 mg/dL (0.60-1.20); Free Thyroxine 0.83 ng/dL (0.70-1.60); Globulin, Blood 4.1 g/dL (2.2-4.0); Phosphorus, Blood 3.2 mg/dL (2.5-4.9); Potassium, Blood 3.6 mmol/L (3.5-5.5); Thyroid Stimulating Hormone 1.49 uIU/mL (0.360-4.800); Total Protein, Blood 5.5 g/dL (6.4-8.2)
[2023-05-05 05:59] LABS: BAND PERCENT MAN 5 % (0-8); BASOPHILS PERCENT MAN 0 % (0-2); EOSINOPHILS ABSOLUTE MAN 0.24 K/mm3 (0.00-0.68); EOSINOPHILS PERCENT MAN 1 % (0-6); LYMPHOCYTES ABSOLUTE MAN 3.14 K/mm3 (0.84-5.20); LYMPHOCYTES PERCENT MAN 13 % (21-46); METAMYELOCYTE ABSOLUTE MAN 0.48 K/mm3 (0.00-0.00); METAMYELOCYTE PERCENT MAN 2 % (0-0); MONOCYTES PERCENT MAN 17 % (4-13); MYELOCYTE ABSOLUTE MAN 0.48 K/mm3 (0.00-0.00); MYELOCYTE PERCENT MAN 2 % (0-0); SEG NEUTROPHILS PERCENT MAN 60 % (41-73); TOTAL CELLS COUNTED 100
--- NOTE | 2023-05-05 06:19 | NUR ---
SHIFT SUMMARY LEVOPHED INFUSED BETWEEN 2-6MCG/MIN TO MAINTAIN MAP >65- NOW INFUSING AT 3MCG/MIN. PT WITH DECREASED RESPONSIVENESS T/O NOC. ROUSES TO STIMULI. OPENS EYES SLIGHTLY. MOANS OCCASIONALLY- NO OTHER VERBAL RESPONSE. MOVES ALL EXTREMITIES WEAKLY. NOT FOLLOWING ANY COMMANDS. O2 2L NC- SATS STABLE. DOBHOFF WITH JEVITY 1.5 AT 45MLS/HR- GOAL IS 65MLS/HR. HARLEY PATENT AND DRAINING TO GRAVITY- DARK ORANGE URINE. BRANDI PATENT, DRSG C/D/I. LUE WITH SWELLING NOTED- PT MOANS WHEN ARM IS MOVED. WILL REPORT TO ONCOMING RN WHEN AVAILABLE.
[2023-05-05 08:46] LABS: Bilirubin, Direct 8.9 mg/dL (0.0-0.3); Bilirubin, Total 12.9 mg/dL (0.1-1.0)
[2023-05-05 10:09] LABS: Base Excess Venous 1.3 mmol/L; Bicarbonate Venous 25.8 mmol/L (24.0-30.0); PCO2 Venous 31.4 mmHg (38-42)
--- NOTE | 2023-05-05 10:23 | NUR ---
CARE OF PT ASSUMED AT 0700. PT SLEEPING, AGITATED, RESTLESS IN BED. DOES NOT OPEN EYES SPONT., DOES NOT FOLLOW COMMANDS. PT MOANS, PT POSSIBLE RESPONDS TO FAMILY SPEAKING WITH HIM BY TURNING HEAD AND MOANING TO THEIR VOICES. PT YELLS OUT WHEN LEFT ARM IS MOVED. PT YELLED OUT WHEN HE WAS TURNED TO SIDE TO CLEAN BM. BM PASTY, DARK GREEN. SOME BLEEDING NOTED TO GUMS, GENTLE ORAL CARE PERFORMED. PT REQUIRED DEEPER SUCTIONING TO BACK OF THROAT, HE HAS A VERY WEAK COUGH. RESP HIGH 20'S. PT INITIALLY WAS SINUS TO SINUS TACH AROUND 100, HEART RATE RAISED TO 140-150. BP IMPROVED W AGITATION, LEVOPHED INITIALLY AT 3MCG, DECREASED TO 2MCG. RECTAL TEMP PROBE PLACED, TEMP 99.4. DR MIMS AT BEDSIDE, FULL UPDATE GIVEN. ATIVAN 0.5MG GIVEN TO PT PER DR MIMS, PT APPEARS TO BE GOING THROUGH ETOH WITHDRAWAL. SATS 97% ON 2L VIA N/C. AMMONIA AND VBG DRAWN, BLOOD CX'S TO BE DRAWN. DR MIMS NOTIFIED OF CRITICAL LOW PLT OF 30, NO ACTIVE BLEEDING NOTED.
--- NOTE | 2023-05-05 12:45 | NUR ---
DR ADHIKARI IN TO SEE PT, UPDATE GIVEN. CT OH HEAD COMPLETED AT [address] ADHIKARI. BEDBATH COMPLETE. LEVOPHED ON STANDBY AT 1130, MAP REMAINS OVER 65. O2 DOWN TO 1L, SATS 96%. HR DOWN TO 130'S, PT MORE RELAXED AFTER ATIVAN. FAMILY AT BEDSIDE. CENTRAL LINE DRSG CHANGED.
[2023-05-05] MEDS ORDERED: Diltiazem HCl 5 MG / ML 5ML Vial IV ONE (14:25)
[2023-05-05] MEDS ORDERED: Metoprolol Tartrate 1 MG/ML 5 ML VIAL IV ONE (14:25)
[2023-05-05] MEDS ORDERED: Diltiazem HCL 125MG/D5 125ML IV SCH (14:30)
[2023-05-05] MEDS ORDERED: dilTIAZem HCL 125 MG in Dextrose 5% 100 ML IV SCH (14:35)
--- NOTE | 2023-05-05 14:49 | NUR ---
UNABLE TO APPRICIATE P WAVE DURING RHTHYM CHECK, QTC APPEARED PROLONGED. DR ADHIKARI NOTIFIED, EKG COMPLETED. EKG SHOWS NONSPECIFIC INTRAVENTRICULAR BLOCK. CARDIZEM 15MG BOLUS GIVEN, PT CONVERTED TO SINUS RHTHYM WITHIN TWO MIN. CARDIZEM GTT INFUSING AT 5MG/HR.
--- NOTE | 2023-05-05 18:14 | NUR ---
DR ADHIKARI SPOKE WITH FAMILY AT BEDSIDE (AT LEAST 10 FAMILY MEMBERS) FOR ABOUT 20MIN. PT HAS REMAINED OFF LEVOPHED SINCE 1130. CT OF HEAD COMPLETED, CT SHOWS IMPROVEMENT PER DR ADHIKARI. PT MEDICATED WITH 15MG CARDIZEM BOLUS FOR, RHYTHM NONSPECIFIC INTRAVENTRICULAR BLOCK IN THE 140'S. PT COVERTED TO SINUS WITHIN 2MIN OF PUSH, CARDIZEM GTT STARTED AT 5MG AND RAN FOR 2 HOURS, THEN STOPPED PER DR ADHIKARI. TUBE FEEDS AT GOAL. CENTRAL LINE DRSG CHANGED. PT HAD SMALL BM TODAY.
--- NOTE | 2023-05-05 19:00 | NUR ---
ASSUMED CARE ASSUMED CARE OF PATIENT. MULTIPLE FAMILY MEMBERS AT BEDSIDE. PT MOANS OCCASIONALLY AND FAMILY MEMBERS STATE THAT HE OCCASIONALLY IS ABLE TO SPEAK WORDS. ATTEMPTS TO OPEN EYES TO NOXIOUS STIMULI. MOVES ALL EXTREMITIES, BUT NOT FOLLOWING COMMANDS. PERIODS OF RESTLESSNESS NOTED. MONITOR SHOWS ST, RATE 105-108. BP STABLE. RESPIRATIONS ARE TACHYPNEIC, BUT UNLABORED. O2 1L NC- SATS STABLE. DOBHOFF WITH JEVITY 1.5 AT GOAL RATE OF 65MLS/HR. 30ML H20 FLUSH Q4H. HARLEY PATENT AND DRAINING TO GRAVITY- ORANGE URINE. LIG PATENT, DRSG C/D/I. SEE SHIFT ASSESSMENT FOR FULL ASSESSMENT.
[2023-05-05] MEDS ORDERED: Lidocaine 2% Viscous Soln 15 ML UDC SS PRN (23:55)
[2023-05-06] VITALS (94 sets, daily range): BP systolic 91–140; BP diastolic 44–108
--- NOTE | 2023-05-06 00:25 | NUR ---
TACHYCARDIA PT NOTED TO BE IN A NARROW COMPLEX TACHYCARDIA, RATE 140s. BP IS STABLE. DR. ADHIKARI NOTIFIED AND NEW ORDERS RECEIVED FOR A CARDIZEM 15MG IV BOLUS AND THEN TO START CARDIZEM 5MG IV GTT.
[2023-05-06] MEDS ORDERED: Diltiazem HCl 5 MG / ML 5ML Vial IV ONE (00:30)
--- NOTE | 2023-05-06 00:43 | NUR ---
CARDIZEM BOLUS/GTT CARDIZEM 15MG IV GIVEN X 1- RHYTHM NOW ST, RATE 105-108. CARDIZEM GTT STARTED AT 5MG/HR.
[2023-05-06 04:46] LABS: Hematocrit 23.9 % (37.0-53.0); Hemoglobin 8.1 g/dL (13.5-17.5); Mean Corpuscular HGB 28.5 pg (26.0-34.0); Mean Corpuscular HGB Conc 33.9 g/dL (31.5-36.5); Mean Corpuscular Volume 84 fL (80-100); NRBC ABSOLUTE 0.22 K/mm3 (0.00-0.02); NRBC Auto 0.7 /100 WBC (0.0-0.2); RDW Coefficient Variation 16.4 % (11.7-14.2); RDW Standard Deviation 49.8 fL (35.1-46.3); Red Blood Cell Count 2.84 M/mm3 (4.30-5.90); White Blood Cell Count 31.81 K/mm3 (4.00-11.30)
[2023-05-06 05:07] LABS: International Normalized Ratio 2.41; Prothrombin Time Results 24.1 Sec (9.7-11.5)
[2023-05-06 05:10] LABS: Platelet Count 40 K/mm3 (150-400)
[2023-05-06 05:52] LABS: BAND PERCENT MAN 1 % (0-8); BASOPHILS PERCENT MAN 0 % (0-2); EOSINOPHILS ABSOLUTE MAN 1.27 K/mm3 (0.00-0.68); EOSINOPHILS PERCENT MAN 4 % (0-6); LYMPHOCYTES ABSOLUTE MAN 1.59 K/mm3 (0.84-5.20); LYMPHOCYTES PERCENT MAN 5 % (21-46); MONOCYTES ABSOLUTE MAN 1.27 K/mm3 (0.16-1.47); MONOCYTES PERCENT MAN 4 % (4-13); NEUTROPHILS ABSOLUTE MAN 27.67 K/mm3 (1.96-9.15); SEG NEUTROPHILS PERCENT MAN 86 % (41-73); TOTAL CELLS COUNTED 100
--- NOTE | 2023-05-06 05:57 | NUR ---
SHIFT SUMMARY FAMILY REMAINED AT BEDSIDE T/O NOC. PLAN OF CARE DISCUSSED FREQUENTLY WITH FAMILY. PT CONTINUES TO BE MINIMALLY RESPONSIVE TO STIMULI. MOVES EXTREMITIES MINIMALLY. NOT FOLLOWING ANY COMMANDS. MOANS OCCASIONALLY. CONTINUES TO REQUIRE FREQUENT SUCTIONING OF BLOODY ORAL SECRETIONS. PT WITH NOTED DECREASE IN ABILITY TO CLEAR SECRETIONS. WEAK COUGH NOTED. REMAINS ON 1L NC- SATS STABLE. RR 30s-40s. MEDICATED WITH CARDIZEM 15MG IV BOLUS AND CARDIZEM GTT AT 5MG/HR AFTER EPISODE OF NARROW COMPLEX TACHYCARDIA, RATE 140s. RATE/RHYTHM RETURNED TO ST, RATE 105-108 WITH BOLUS. BP STABLE. TMAX 100.0F VIA RECTAL TEMP PROBE. DOBHOFF WITH JEVITY 1.5 AT GOAL RATE OF 65MLS/HR. HARLEY PATENT AND DRAINING TO GRAVITY. MEDICATED WITH ATIVAN 0.5MG IV X 3 DOSES FOR INCREASED RESTLESSNESS. WILL REPORT TO ONCOMING RN WHEN AVAILABLE.
[2023-05-06 06:06] LABS: Iron Serum 42 ug/dL (65-175); Magnesium, Blood 3.2 mg/dL (1.6-2.4)
[2023-05-06 06:07] LABS: Ferritin, Serum 348 ng/mL (26-388); Percent Saturation 26.1 % (20.0-50.0); Total Iron Binding Capacity 161 ug/dL (250-450)
[2023-05-06 06:13] LABS: Alanine Aminotransfer (ALT/SGP 19 U/L (12-78); Albumin, Blood 1.5 g/dL (3.4-5.0); Albumin/Globulin Ratio 0.3 (0.8-1.8); Alk Phos 166 U/L (50-136); Anion Gap 5 mmol/L (6-16); Aspartate Aminotrans (AST/SGOT 107 U/L (12-37); Bilirubin, Total 14.2 mg/dL (0.1-1.0); Blood Urea Nitrogen 90 mg/dL (8-24); Bun/Creatinine Ratio 52.6 (12.0-20.0); CO2, Blood 26 mmol/L (21-32); Calcium, Blood 7.9 mg/dL (8.5-10.1); Chloride, Blood 109 mmol/L (98-108); Creatinine, Blood 1.71 mg/dL (0.60-1.20); Globulin, Blood 4.6 g/dL (2.2-4.0); Glomerular Filtration Rate 48 (60-); Glucose, Blood 108 mg/dL (70-99); Phosphorus, Blood 3.9 mg/dL (2.5-4.9); Sodium, Blood 140 mmol/L (136-145); Total Protein, Blood 6.1 g/dL (6.4-8.2)
[2023-05-06 07:48] LABS: ETHYL GLUCURONIDE, URN, QUANT 2600 ng/mL; ETHYL SULFATE, URN, QUANT 1001 ng/mL
--- NOTE | 2023-05-06 09:25 | NUR ---
CARE OF PT ASSUMED AT 0700. PT SLEEPING, APPEARS MORE RESTLESS THAN YESTERDAY, PT WEAKLY MOVES ALL EXTREMITIES. PT DOES NOT OPEN EYES, OR FOLLOW ANY COMMANDS. PT MOANS OCCASIONALLY, MOANS WITH CARE, MOANS LOUDLY WHEN LEFT ARM LIFTED. PUPILS ARE 2/2MM SLUGGISH. PT INCONTINENT OF SOFT DARK GREEN STOOL THIS AM. SEVERAL SMALL BLOT CLOTS REMOVED FROM MOUTH. SLOW OOZE OF BLEEDING NOTED AROUND GUMS AND LIP. VISCOUS LIDOCAINE APPLIED WITH A SWAB SEEMS TO HELP SLOW THE OOZING. RT IS SETTING UP HUMIDIFIED AIR TO HELP KEEP HIS MOUTH MOIST. PT IS IN SINUS TO SINUS TACH W RATE AROUND 100. CARDIZEM GTT IS AT 5MG/HR. BP IS STABLE. PRESSORS HAVE BEEN OFF SINCE YESTERDAY AT 1130. PT HAS WEAK COUGH AND MAY NOT BE PROTECTING AIRWAY. RIGHT LUNGS IS VERY DIMINSHED, CRACKLES TO LLL NOTED. SATS 96% ON RA. DR ADHIKARI AT BEDSIDE TO SEE PT THIS AM, UPDATE GIVEN. DR ADHIKARI SPOKE WITH MUTIPLE FAMILY MEMBERS FOR AN EXTENDED AMT OF TIME.
--- NOTE | 2023-05-06 09:39 | NUR ---
"Spiritual Care Consult Attempted | Consult referred by Bri Topete Pt. is in bed and mostly not responsive. Many family are in the room and are at bedside. Pts. sister (I believe) verbalized gratitude for the spiritual care visit but declined any present spiritul care. Sister verbalized that they will request spiritual care if needed."
--- NOTE | 2023-05-06 10:53 | NUR ---
DR MIMS AT BEDSIDE, UPDATE GIVEN. DR MIMS SPEAKING WITH FAMILY NOW REGARDING POSSIBLE INTUBATION FOR AIRWAY PROTECTION. PT INCONTINENT OF LARGE LIQUID GREEN STOOL, BEDBATH COMPLETED. NEW TUBE FEEDS HUNG. ORAL CARE PROVIDED.
[2023-05-06] MEDS ORDERED: propofoL 100 ML IV ONE (13:03)
[2023-05-06] MEDS ORDERED: propofoL 100 ML IV SCH (13:30)
[2023-05-06] MEDS ORDERED: Albuterol 2.5 MG/3 ML VIAL INH PRN (14:30)
--- NOTE | 2023-05-06 14:31 | NUR ---
PT INTUBATED AT 1320 WITH FAMILY CONSENT. PROPOFOL GTT USED TO SEDATE PT. PROPOFOL AT 15MCG. PT INTUBATED WITH 8.0 TUBE 24CM AT LIP. VENT SETTINGS 15/450/35%/5. LARGE BLOOD CLOT REMOVED ABOVE VOCAL CORDS BY DR ADHIKARI PRIOR TO INTUBATION, PT SHRAVAN PROCEDURE WELL. BLOOD CX POSITIVE FOR GRAM+ COCCI IN CLUSTERS; DR ADHIKARI NOTIFIED.
[2023-05-06] MEDS ORDERED: LORazepam 2 MG/ML 1ML Injection IV PRN (14:35)
[2023-05-06] MEDS ORDERED: Hydrogen Peroxide 1.5 % Solution MT SCH (16:00)
[2023-05-06] MEDS ORDERED: Furosemide 10 MG/ML 4ML Vial IV ONE (17:25)
--- NOTE | 2023-05-06 17:56 | NUR ---
DR ADHIKARI CALL REGARDING LOW URINE OUTPUT, LASIX 40MG ORDERED AND GIVEN. PROPOFOL IS AT 15MCG, PT APPEARED RESTLESS AT 10MCG; HEAD LIGHTLY THRASHING FROM SIDE TO SIDE. CARDIZEM HAS REMAINED AT 5MG/HR T/O SHIFT, RHTHYM HAS STAYED IN SINUS W RATE AROUND 100. PT IS HYPOTENSIVE W MAP AT 60, OKAY TO RE-START LEVOPHED PER DR ADHIKARI.
--- NOTE | 2023-05-06 19:40 | NUR ---
ASSESSMENT/ASSEMED CARE PT INTUBATED AND SEDATED. FAMILY AT BEDSIDE. FAMILY STEPPED OUT DURING ASSESSMENT. LUNGS CLEAR BUT DECREASED. VENT SETTINGS AC/VC 15/450/5/35%. LARGE CLOT REMOVED FOR MOUTH DURING ORAL CARE. SOME BLEEDING NOTED. HEART RATE IN THE 90'S ON CARDIZEM AT 5 MG/HR. BP STABLE ON LEVOPHED AT 8 MCQ/MIN TO KEEP MAP GREATER THAN 65. 2-3+ EDEMA TO BILAT LOWER EXT. GENERAL EDEMA TO TRUNK. 2+ EDEMA TO BILAT UPPER EXT. BT+ HYPOACTIVE. DOBHOFF IN PLACE AT 65 CM WITH TUBE FEED JEVITY 1.2 AT GOAL RATE 65 ML/HR WITH WATER 30 ML Q4HR. CENTRAL LINE TO LEFT IJ DRSG INTACT. PROFOL AT 15 MCG/KG/MIN, LEVOPHED 8 MCG/MIN, CARDIZEM 5 MG/HR, AND NS AT 10 ML/HR X2. HARLEY CATH REMOVED DUE TO LEAKING. NEW 16 FR TEMP HARLEY PLACED WITHOUT DIFFICULTY AND UA SENT. URINE ORANGE. PT REPOSITIONED. FAMILY BACK TO ROOM.
--- NOTE | 2023-05-06 20:00 | NUR ---
FEVER TEMP UP TO 100.5 VIA HARLEY TEMP PROBE. COOL CLOTH TO FOREHEAD, FAN ON PT, AND ICE PACKS BEHIND NECK, UNDER ARMS AND TO GROIN. EXPLAINED TO FAMILY
[2023-05-06 20:02] LABS: Source, Urine Foley catheter
[2023-05-06 20:24] LABS: Appearance, Urine Hazy (Clear); Blood, Urine 4+ (Neg); Glucose Qualitative, Urine Neg (Neg); Ketones, Urine Neg (Neg); Leukocyte Esterase, Urine 3+ (Neg); Nitrite, Urine Neg (Neg); Protein, Urine 1+ (Neg); Specific Gravity, Urine 1.015 (1.003-1.022); Urobilinogen, Urine 1+ (Normal)
[2023-05-06 20:32] LABS: Bilirubin, Urine 2+ (Neg); Color, Urine Amber (P-Yellow)
[2023-05-06 20:36] LABS: Bacteria Many /hpf; Red Blood Cells, Urine 50-100 /hpf (0-2); Renal Epithelial Few /hpf (0-Rare); Squamous Epithelial Cells Not Seen /hpf (Few); Transitional Epithelial Cells Rare /hpf (0-Rare)
[2023-05-06 20:37] LABS: Granular Casts 0-2 /lpf (0); Hyaline Casts 0-2 /lpf (0-2)
[2023-05-07] VITALS (73 sets, daily range): BP systolic 99–126; BP diastolic 46–83
[2023-05-07 04:31] LABS: Hematocrit 22.7 % (37.0-53.0); Hemoglobin 7.7 g/dL (13.5-17.5); Mean Corpuscular HGB 28.7 pg (26.0-34.0); Mean Corpuscular HGB Conc 33.9 g/dL (31.5-36.5); Mean Corpuscular Volume 85 fL (80-100); NRBC ABSOLUTE 0.16 K/mm3 (0.00-0.02); NRBC Auto 0.4 /100 WBC (0.0-0.2); Platelet Count 68 K/mm3 (150-400); RDW Coefficient Variation 16.5 % (11.7-14.2); RDW Standard Deviation 49.8 fL (35.1-46.3); Red Blood Cell Count 2.68 M/mm3 (4.30-5.90); White Blood Cell Count 37.44 K/mm3 (4.00-11.30)
[2023-05-07 04:44] LABS: International Normalized Ratio 2.46; Prothrombin Time Results 24.5 Sec (9.7-11.5)
[2023-05-07 04:53] LABS: Magnesium, Blood 3.3 mg/dL (1.6-2.4)
[2023-05-07 04:54] LABS: Albumin, Blood 1.4 g/dL (3.4-5.0); Albumin/Globulin Ratio 0.3 (0.8-1.8); Bilirubin, Total 13.3 mg/dL (0.1-1.0); Bun/Creatinine Ratio 51.1 (12.0-20.0); Calcium, Blood 7.5 mg/dL (8.5-10.1); Creatinine, Blood 2.23 mg/dL (0.60-1.20); Globulin, Blood 4.5 g/dL (2.2-4.0); Phosphorus, Blood 4.5 mg/dL (2.5-4.9); Potassium, Blood 3.9 mmol/L (3.5-5.5); Total Protein, Blood 5.9 g/dL (6.4-8.2)
[2023-05-07 05:17] LABS: BAND PERCENT MAN 3 % (0-8); BASOPHILS PERCENT MAN 0 % (0-2); EOSINOPHILS ABSOLUTE MAN 1.12 K/mm3 (0.00-0.68); EOSINOPHILS PERCENT MAN 3 % (0-6); LYMPHOCYTES % ATYPICAL MANUAL 2 % (0-0); LYMPHOCYTES ABSOLUTE MAN 2.62 K/mm3 (0.84-5.20); LYMPHOCYTES PERCENT MAN 5 % (21-46); MONOCYTES ABSOLUTE MAN 4.49 K/mm3 (0.16-1.47); MONOCYTES PERCENT MAN 12 % (4-13); MYELOCYTE ABSOLUTE MAN 1.12 K/mm3 (0.00-0.00); MYELOCYTE PERCENT MAN 3 % (0-0); NEUTROPHILS ABSOLUTE MAN 28.08 K/mm3 (1.96-9.15); SEG NEUTROPHILS PERCENT MAN 72 % (41-73); TOTAL CELLS COUNTED 100
[2023-05-07] MEDS ORDERED: Pantoprazole Sodium 40 MG Injection IV SCH (06:00)
--- NOTE | 2023-05-07 06:08 | NUR ---
SHIFT SUMMARY PT CONT INTUBATED AND ON MECH VENT. SEDATED WITH PROPOFOL. FAMILY AT BEDSIDE. LUNGS CLEAR BUT DECREASED. VENT SETTINGS AC/VC+ 15/450/5/35%. SUCTIONED OLD BLOOD FROM ET TUBE AT START OF NIGHT, NOW GETTING NO BLOOD AND CREAM COLORED SECRECTIONS. ORAL CARE DONE Q4HR. LESS BLEEDING NOTED THIS MORNING. HEART RATE 80-90'S WITH CARDIZEM AT 5 MG/HR. BP STABLE ON LEVOPHED, CURRENTLY AT 7 MCQ/MIN. HARLEY CATH PATENT DRAINING ORANGE URINE. INCREASED URINE OUTPUT FOR THE NIGHT AT 639 ML AFTER RECEIVING LASIX AT THE END OF DAY SHIFT. PT INCONT OF LIQUID BROWN STOOL. PLACED FLEXI SEAL PT HELP PREVENT SKIN BREAKDOWN. CENTRAL LINE TO LEFT IJ, DRSG INTACT. PT MOVING EXT MORE THIS MORNING, BUT NOT FOLLOWING INSTRUCTIONS. REPORT TO ON COMING NURSE
--- NOTE | 2023-05-07 08:46 | NUR ---
ASSUMED CARE REPORT FROM SUELLEN PFEIFFER AT 0700. PT INTUBATED AND SEDATED. VENT SETTINGS AC/VC+ 15/450/5/30%. LUNGS CLEAR, DIM IN BASES. SCANT THIN SECRETIONS FROM ETT. SMALL AMOUNT OF DARK BLOOD IN MOUTH. PROPOFOL GTT INFUSING, RASS -4. NO COUGH/GAG/SWALLOW AT THIS TIME. PUPILS 2 MM, SLUGGISH, SCLERA YELLOW. PT DOES NOT FOLLOW COMMANDS OR WITHDRAW FROM PAIN TO EXT, GRIMACES c TRAPEZUS PINCH. MOVES ALL EXT SPONT. SR, RATE 90'S. CARDIZEM GTT INFUSING. LEVO GTT FOR MAP >65. 3+ EDEMA TO BLE. DOBHOFF TO L NARE, 65 CM, TF AT GOAL. ABD ROUND, SOFT, NON TENDER. BT X 4. RECTAL TUBE, LIQUID BROWN DRAINAGE OUT. HARLEY PATENT, DRAINING JOE URINE TO GRAVITY. CVC TO LIJ, DRESSING C/D/I. FAMILY AT BEDSIDE, UPDATED ON CARE PLAN AND PROGRESS. QUESTIONS ANSWERED. WILL CONTINUE PLAN OF CARE.
[2023-05-07] MEDS ORDERED: Hydrogen Peroxide 1.5 % Solution MT SCH (12:00)
[2023-05-07] MEDS ORDERED: Calcium Chloride 10% 10 ML SYR IV ONE (14:30)
[2023-05-07] MEDS ORDERED: Calcium Chloride 10% 2,000 MG in NS 100 ML IV ONE (14:35)
--- NOTE | 2023-05-07 17:25 | NUR ---
SHIFT SUMMARY PT REMAINS INTUBATED AND SEDATED. VENT SETTINGS UNCHANGED AC/VC+ 15/450/5/30%. LUNGS CLEAR. SCANT SECRETIONS FROM ETT. DRIED BLOOD IN NARES AND MOUTH. NO ACUTE BLEEDING. CONTINUES ON PROPOFOL GTT, RASS -4. NO COUGH/GAG/SWALLOW. GRIMACES TO TRAPEZEUS PINCH. SPONT MOVEMENT TO ALL EXT, DOES NOT WITHDRAW FROM PAIN. DOES NOT FOLLOW COMMANDS. ST, 100'S. DILTIAZEM PLACED ON STANDBY PER DR ADHIKARI. LEVO GTT CONTINUES FOR MAP>65, TITRATED DOWN THIS SHIFT. WORSENING EDEMA AND ANASCARSA. DECREASED UO, HARLEY PATENT, DRAINING JOE URINE TO GRAVITY. TUBE FEEDS CONTINUE AT GOAL VIA DOBHOFF. RECTAL TUBE IN PLACE c BROWN PASTY STOOL OUT. ABD DISTENDED, SOFT, NON TENDER. BT X 4. CVC TO LIJ, DRESSING C/D/I. TMAX 100.5, DECREASED c FAN AND COOL CLOTH. MULTIPLE FAMILY AT BEDSIDE AND UPDATED ON CARE PLAN AND PROGRESS. WILL CONTINUE PLAN OF CARE UNTIL REPORT TO ONCOMING NURSE.
--- NOTE | 2023-05-07 20:53 | NUR ---
ASSUMED CARE CARE WAS ASSUMED OF PT AT 1900, REPORT GIVEN BY ABIODUN PFEIFFER. PT INTUBATED AND SEDATED. PROPOFOL GTT INFUSING, SEE FLOWSHEET. PT GRIMACES TO TRAPEZIUS SQUEEZE, BUT DOES NOT WITHDRAWAL FROM PAINFUL STIMULI TO EXTREMITIES. PT NOT FOLLOWING COMMANDS AT THIS TIME. POSITIVE COUGH AND CORNEAL REFLEX. NEGATIVE GAG REFLEX. PT SPONTANEOUSLY MOVING HEAD BACK AND FORTH AND MOSTLY RIGHT ARM AT THIS TIME. VERY WEAK MOVEMENTS OBSERVED. RASS -4, CPOT 0 AT THIS TIME. VENT SETTINGS AC/VC 15/450/5/30%, O2 SATS > 95%. BLOOD-TINGED SECRETIONS NOTED IN ORAL CAVITY. PT HAS MINIMAL SECRETIONS WITH ETT SUCTIONING AT THIS TIME. PT TACHYPNEIC, RESPIRATIONS IN UPPER 20s. CARDIAC MONITORING REFLECTS NSR, LEVOPHED GTT INFUSING FOR MAP GOAL >65. SEE FLOWSHEET. HR 90s. PT EDEMATOUS T/O, 3/4+ IN BLE, 3+ IN LEFT ARM. HARLEY PATENT AND DRAINING JOE URINE TO GRAVITY, MINIMAL AMOUNT. RECTAL TUBE PATENT AND DRAINING BROWN STOOL. TF INFUSING THROUGH DOBHOFF TO R NARE AT GOAL. CVC TO LIJ, DRESSING C/D/I. FAMILY AT BEDSIDE.
[2023-05-08] VITALS (58 sets, daily range): BP systolic 88–118; BP diastolic 36–61
[2023-05-08 04:11] LABS: Hematocrit 22.6 % (37.0-53.0); Hemoglobin 7.6 g/dL (13.5-17.5); Mean Corpuscular HGB 28.9 pg (26.0-34.0); Mean Corpuscular HGB Conc 33.6 g/dL (31.5-36.5); Mean Corpuscular Volume 86 fL (80-100); NRBC ABSOLUTE 0.08 K/mm3 (0.00-0.02); NRBC Auto 0.2 /100 WBC (0.0-0.2); Platelet Count 80 K/mm3 (150-400); RDW Coefficient Variation 16.5 % (11.7-14.2); RDW Standard Deviation 49.6 fL (35.1-46.3); Red Blood Cell Count 2.63 M/mm3 (4.30-5.90); White Blood Cell Count 38.19 K/mm3 (4.00-11.30)
[2023-05-08 04:27] LABS: International Normalized Ratio 2.39; Prothrombin Time Results 23.9 Sec (9.7-11.5)
[2023-05-08 04:30] LABS: Albumin, Blood 1.3 g/dL (3.4-5.0); Albumin/Globulin Ratio 0.3 (0.8-1.8); Bilirubin, Total 12.1 mg/dL (0.1-1.0); Bun/Creatinine Ratio 45.9 (12.0-20.0); Calcium, Blood 7.5 mg/dL (8.5-10.1); Creatinine, Blood 2.96 mg/dL (0.60-1.20); Globulin, Blood 4.8 g/dL (2.2-4.0); Magnesium, Blood 3.3 mg/dL (1.6-2.4); Mean Platelet Volume 13.3 fL (9.1-12.4); Phosphorus, Blood 6.2 mg/dL (2.5-4.9); Potassium, Blood 4.3 mmol/L (3.5-5.5); Total Protein, Blood 6.1 g/dL (6.4-8.2)
[2023-05-08 04:58] LABS: BASOPHILS PERCENT MAN 0 % (0-2); EOSINOPHILS PERCENT MAN 0 % (0-6); LYMPHOCYTES PERCENT MAN 5 % (21-46); METAMYELOCYTE ABSOLUTE MAN 0.76 K/mm3 (0.00-0.00); METAMYELOCYTE PERCENT MAN 2 % (0-0); MONOCYTES ABSOLUTE MAN 3.43 K/mm3 (0.16-1.47); MONOCYTES PERCENT MAN 9 % (4-13); NEUTROPHILS ABSOLUTE MAN 32.07 K/mm3 (1.96-9.15); SEG NEUTROPHILS PERCENT MAN 84 % (41-73); TOTAL CELLS COUNTED 100
--- NOTE | 2023-05-08 06:34 | NUR ---
SHIFT SUMMARY PT HAD NO ACUTE CHANGES THIS SHIFT. PT'S NEURO STATUS UNCHANGED. PT GRIMACES TO TRAPEZIUS SQUEEZE, NO WITHDRAWL TO PAINFUL STIMULI. PROPOFOL GTT TITRATED DOWN THIS SHIFT, SEE FLOWSHEET. RASS -4, CPOT 0. PT OCCASIONALLY MOVES RIGHT ARM MINIMALLY AND HEAD OCCASIONALLY FROM LEFT TO RIGHT. PT NOT FOLLOWING COMMANDS AT THIS TIME. COUGH AND CORNEAL REFLEX PRESENT, NO GAG REFLEX. VENT SETTINGS UNCHANGED THIS SHIFT, AC/VC 15/450/5/30%, O2 SATS > 95%. PT TACHYPNEIC WITH MINIMAL SECRETIONS. BLOOD TINGED ORAL SECRETIONS NOTED, GENTLE ORAL CARE PERFORMED. CARDIAC MONITORING REFLECTS NSR, HR 90s. LEVOPHED GTT INFUSING FOR MAP GOAL OF 65, SEE FLOWSHEET. TF INFUSING AT GOAL. HARLEY PATENT AND DRAINING TO GRAVITY, UO FOR SHIFT 170 mL. RECTAL TUBE IN [address], PATENT AND DRAINING TO GRAVITY. PT AFEBRILE THIS SHIFT.
--- NOTE | 2023-05-08 09:07 | NUR ---
ASSUMED CARE REPORT FROM RAMU PFEIFFER AT 0700. PT INTUBATED AND SEDATED. VENT SETTINGS AC/VC+ 15/450/5/30%. LUNGS CLEAR. SCANT SECRETIONS FROM ETT. PROPOFOL INFUSING AT SHIFT CHANGE, RASS -4, PLACED ON STANDBY. PT ATTEMPTS TO OPEN EYES SPONT, MOVES EXT SPONT, DOES NOT FOLLOW COMMANDS OR WITHDRAW FROM PAIN. GRIMACES c TRAPEEZUS PINCH. NO COUGH/GAG/SWALLOW. SR, RATE 90'S. LEVO PLACED ON STANDBY. WILL MONITOR FOR MAP>65. ANASCARA, 4+ EDEMA TO BLE, WORSE SINCE YESTERDAY DAY SHIFT. TUBE FEEDS AT GOAL VIA DOBHOFF TO R NARE, 65 CM. ABD DISTENDED, SOFT, NON TENDER. BT X 4. RECTAL TUBE IN PLACE, BROWN STOOL OUT. CVC TO [facility], DRESSING C/D/I. DR CANO AND DR JIMENEZ ROUNDED. WILL MONITOR FOR MAP>65 AND EVALUATE FOR REMOVAL OF CVC. HARLEY PATENT, DRAINING JOE URINE TO GRAVITY. AFEBRILE. FAMILY AT BEDSIDE. UPDATED ON CARE PLAN AND PROGRESS. WILL CONTINUE PLAN OF CARE.
--- NOTE | 2023-05-08 17:20 | NUR ---
SHIFT SUMMARY PT CONTINUED TO BE INTUBATED, VENT SETTINGS UNCHANGED, AC/VC+ 15/450/5/360%. LUNGS CLEAR. SCANT SECRETIONS FROM ETT. PROPOFOL PLACED ON STANDBY THIS SHIFT. TOLERATING VENT. RASS -3. OPENS EYES SPONT AND MOVES EXT BUT DOES NOT FOLLOW COMMANDS. PT HAS COUGH AND SWALLOW REFLEX. SR, RATE 90'S. LEVO ON STANDBY, MAP >65. ANASARCA. 4+ EDEMA TO BLE. OLIGURIC. HARLEY PATENT, DRAINING JOE URINE TO GRAVITY. ABD DISTENDED, SOFT, NON TENDER. BT X 4. TUBE FEEDS AT GOAL, RECTAL TUBE IN PLACE. PIV X 2 STARTED. CVC REMOVED, PETROLEUM GAUZE IN PLACE. MULTIPLE FAMILY MEMBERS UPDATED. WILL CONTINUE PLAN OF CARE UNTIL REPORT TO ONCOMING NURSE.
--- NOTE | 2023-05-08 21:23 | NUR ---
ASSUMED CARE CARE ASSUMED OF PT AT 1900, REPORT GIVEN BY NORM PFEIFFER. PT REMAINS INTUBATED AND TOLERATING WELL WITHOUT SEDATION. PT MINIMALLY ATTEMPTS TO OPEN EYES TO VERBAL/TACTILE STIMULI BUT UNABLE TO FULLY OPEN EYES. PT NOT FOLLOWING COMMANDS, GRIMACES TO TRAPEZIUS SQUEEZE AND WHEN TRYING TO ELICIT GAG REFLEX. COUGH REFLEX PRESENT. PT DOES NOT WITHDRAW FROM PAINFUL STIMULI. VENT SETTINGS AC/VC 15/450/5/30%. O2 SATS > 95%. CARDIAC MONITORING REFLECTS NSR, HR 90s, SBP 110s. PT EDEMATOUS T/O, 4+ BLE AND 3+ LUE. TEMP HARLEY PATENT AND DRAINING TO GRAVITY. TF INFUSING THROUGH DOBHOFF TO R NARE AT GOAL. RECTAL TUBE PATENT AND DRAINING TO GRAVITY. BOTH PIVs TO RIGHT ARM PATENT WITH POSITIVE BLOOD DRAWBACK. BANDAGE COVERING PREVIOUS CVC TO [facility] C/D/I.
[2023-05-09] VITALS (44 sets, daily range): BP systolic 95–113; BP diastolic 41–59
--- NOTE | 2023-05-09 01:32 | NUR ---
PT UPDATE PT OPENING EYES MORE OFTEN. PT OPENS EYES TO TACTILE STIMULATION. MOVING RIGHT ARM, REMAINS SIGNIFICANTLY WEAK. PT SLIGHTLY MOVING BLE AND LEFT ARM. PT NOT FOLLOWING COMMANDS.
[2023-05-09 04:26] LABS: Base Excess Venous -4.2 mmol/L; Bicarbonate Venous 21.5 mmol/L (24.0-30.0); PCO2 Venous 24.6 mmHg (38-42)
[2023-05-09 04:28] LABS: Hematocrit 23.1 % (37.0-53.0); Hemoglobin 7.8 g/dL (13.5-17.5); Mean Corpuscular HGB Conc 33.8 g/dL (31.5-36.5); Mean Corpuscular Volume 86 fL (80-100); Mean Platelet Volume 12.4 fL (9.1-12.4); NRBC ABSOLUTE 0.06 K/mm3 (0.00-0.02); NRBC Auto 0.2 /100 WBC (0.0-0.2); Platelet Count 97 K/mm3 (150-400); RDW Standard Deviation 49.5 fL (35.1-46.3); Red Blood Cell Count 2.69 M/mm3 (4.30-5.90); White Blood Cell Count 33.49 K/mm3 (4.00-11.30)
[2023-05-09 04:40] LABS: International Normalized Ratio 2.4
[2023-05-09 04:55] LABS: BAND PERCENT MAN 1 % (0-8); BASOPHILS PERCENT MAN 0 % (0-2); EOSINOPHILS PERCENT MAN 0 % (0-6); LYMPHOCYTES PERCENT MAN 6 % (21-46); MONOCYTES ABSOLUTE MAN 2.67 K/mm3 (0.16-1.47); MONOCYTES PERCENT MAN 8 % (4-13); SEG NEUTROPHILS PERCENT MAN 85 % (41-73); TOTAL CELLS COUNTED 100
[2023-05-09 05:00] LABS: Albumin, Blood 1.2 g/dL (3.4-5.0); Albumin/Globulin Ratio 0.2 (0.8-1.8); Bilirubin, Total 11.5 mg/dL (0.1-1.0); Bun/Creatinine Ratio 41.3 (12.0-20.0); Calcium, Blood 6.9 mg/dL (8.5-10.1); Creatinine, Blood 3.87 mg/dL (0.60-1.20); Globulin, Blood 5.2 g/dL (2.2-4.0); Total Protein, Blood 6.4 g/dL (6.4-8.2)
--- NOTE | 2023-05-09 06:17 | NUR ---
SHIFT SUMMARY PT REMAINS INTUBATED, SEDATION REMAINS OFF. PT PROGRESSIVELY MORE ALERT THIS SHIFT. PT OPENING EYES TO TACTILE STIMULI AND OCCASIONALLY VERBAL STIMULI. PT MINIMALLY MOVING ALL 4 EXTREMITIES, THE RIGHT ARM MORESO THAN OTHER EXTREMITIES. PT GRIMACES TO TRAPEZIUS SQUUEZE BUT DOES NOT WITHDRAW FROM PAIN. RASS -3/-4. CPOT O. PT NOT FOLLOWING COMMANDS. VENT SETTINGS UNCHANGED THIS SHIFT, AC/VC 15/450/5/30%. O2 SATS > 95%. CARDIAC MONITORING REFLECTED NSR, HR 90s. SBP 100s-110s. TEMP HARLEY PATENT AND DRAINING TO GRAVITY, 150 mL OUT THIS SHIFT. RECTAL TUBE PATENT AND DRAINING TO GRAVITY. TF INFUSING AT GOAL THROUGH DOBHOFF TO RIGHT NARE. FAMILY REMAINS AT BEDSIDE.
--- NOTE | 2023-05-09 08:01 | NUR ---
ASSUMED CARE REPORT FROM RAMU PFEIFFER AT 0700. PT INTUBATED. VENT SETTINGS AC/VC+ 15/450/5/30%. LUNGS CLEAR. NO SECRETIONS FROM ETT. +COUGH/SWALLOW REFLEX, NO GAG. NO SEDATION. OPENS EYES SPONT, SMALL MOVEMENTS TO ALL EXT. GRIMACES TO TRAPEZUS PINCH. DOES NOT WITHDRAW FROM PAIN OR FOLLOW COMMANDS. RASS -4. PUPILS 2 MM, SLUGGISH, SCLERA YELLOW. SR, RATE 90'S. BP STABLE, MAP>65. ANASARSA, 4+ EDEMA TO BLE. ABD ROUND, FIRM IN LOWER QUADRENTS, SOFT IN UPPER, BT X 4. TUBE FEEDS AT GOAL VIA DOBHOFF. RECTAL TUBE IN PLACE, PASTY BROWN STOOL OUT. HARLEY PATENT, OLIURIC, JOE URINE TO GRAVITY. AFEBRILE. PIV X 2. DRESSING TO LIJ CVC INSERTION SITE INTACT. FAMILY BEDSIDE, UPDATED ON CARE PLAN AND PROGRESS. WILL CONTINUE TO PLAN OF CARE. MEMBERS AT BEDSIDE UPDATED.
[2023-05-09] MEDS ORDERED: Folic Acid 1 MG TAB PT SCH (09:00)
--- NOTE | 2023-05-09 17:27 | NUR ---
SHIFT SUMMARY PT REMAINS INTUBATED. VENT SETTINGS CHANGED TO SPONT AT APPROX 0800, 10/5/30%, TV 600-630 MLS, RR MID 20'S. LUNGS CLEAR, NO SECRETIONS FROM ETT. WEAK COUGH/SWALLOW, NO GAG. REMAINS OFF SEDATION. OPENS EYES SPONT. PT ABLE TO MOVE TOES BILATERALLY ON COMMANDS FOR THIS AFTERNOON ASSESSMENT. UNABLE TO SQUEEZE HANDS. SR, RATE 90'S. BP STABLE, MAPS 60-70'S THIS SHIFT. ANASARSA. 3+ EDEMA TO BLE, 2+ TO LUE. ABD DISTENDED, FIRM, BT X 4. TUBE FEEDS AT GOAL VIA DOBHOFF AT 65CM. RECTAL TUBE IN PLACE. HARLEY PATENT, OLIURIC, DRAINING JOE URINE TO GRAVITY. AFEBRILE. PLAN FOR DIALYSIS CATH PLACEMENT AND DIALYSIS TOMORROW. CONSENT OBTAINED BY DR ZAMBRANO FROM BROTHER, IN CHART. WILL CONTINUE PLAN OF CARE UNTIL REPORT TO ONCOMING NURSE.
--- NOTE | 2023-05-09 20:00 | NUR ---
ASSUMED CARE ASSUMED CARE AT 1900. PT INTUBATED AND OFF SEDATION. ON SPONT 10/5 30% RR 20-32. SWITCHED TO AC/VC 15/450/5/30%. PT OPENS EYES TO VOICE BUT UNABLE TO TRACK NURSE OR FOLLOW DIRECTIONS. GRIMACES WITH ORAL CARE BUT DOES NOT WITHDRAW FROM NOXIOUS STIMULI. PT MOVING ALL EXTREMITIES. MAP 60-66. CALL TO DR JIMENEZ TO CONFIRM GOAL OF MAP GREATER THEN 60. OTHER VSS. TF AT GOAL. HARLEY PATENT AND DRAINING ORANGE URINE. RECTAL TUBE IN PLACE. FAMILY AT BEDSIDE.
[2023-05-09] MEDS ORDERED: CeFAZolin Sodium 2,000 MG in NS 50 ML IV SCH (21:00)
[2023-05-10] VITALS (76 sets, daily range): BP systolic 76–116; BP diastolic 36–62
[2023-05-10 03:28] LABS: BASOPHILS ABSOLUTE AUTO 0.09 K/mm3 (0.00-0.23); BASOPHILS PERCENT AUTO 0 % (0-2); EOSINOPHILS ABSOLUTE AUTO 0.23 K/mm3 (0.00-0.68); EOSINOPHILS PERCENT AUTO 1 % (0-6); Hematocrit 21.4 % (37.0-53.0); Hemoglobin 7.1 g/dL (13.5-17.5); IMMATURE GRAN PERCENT AUTO 3 % (0-1); LYMPHOCYTES PERCENT AUTO 4 % (21-46); MONOCYTES ABSOLUTE AUTO 2.63 K/mm3 (0.16-1.47); MONOCYTES PERCENT AUTO 9 % (4-13); Mean Corpuscular HGB 28.5 pg (26.0-34.0); Mean Corpuscular HGB Conc 33.2 g/dL (31.5-36.5); Mean Corpuscular Volume 86 fL (80-100); Mean Platelet Volume 11.4 fL (9.1-12.4); NEUTROPHILS ABSOLUTE AUTO 25.81 K/mm3 (1.96-9.15); NEUTROPHILS PERCENT AUTO 84 % (41-73); NRBC ABSOLUTE 0.06 K/mm3 (0.00-0.02); NRBC Auto 0.2 /100 WBC (0.0-0.2); Platelet Count 115 K/mm3 (150-400); RDW Coefficient Variation 18.4 % (11.7-14.2); RDW Standard Deviation 49.9 fL (35.1-46.3); Red Blood Cell Count 2.49 M/mm3 (4.30-5.90); White Blood Cell Count 30.86 K/mm3 (4.00-11.30)
[2023-05-10 03:42] LABS: International Normalized Ratio 2.58; Prothrombin Time Results 25.7 Sec (9.7-11.5)
[2023-05-10 03:55] LABS: Magnesium, Blood 3.7 mg/dL (1.6-2.4)
[2023-05-10 04:28] LABS: Albumin, Blood 1.1 g/dL (3.4-5.0); Albumin/Globulin Ratio 0.2 (0.8-1.8); Bilirubin, Total 10.2 mg/dL (0.1-1.0); Bun/Creatinine Ratio 38.4 (12.0-20.0); Calcium, Blood 6.6 mg/dL (8.5-10.1); Creatinine, Blood 5.02 mg/dL (0.60-1.20); Globulin, Blood 5.1 g/dL (2.2-4.0); Potassium, Blood 5.5 mmol/L (3.5-5.5); Total Protein, Blood 6.2 g/dL (6.4-8.2)
[2023-05-10 04:39] LABS: Phosphorus, Blood 9.7 mg/dL (2.5-4.9)
--- NOTE | 2023-05-10 06:28 | NUR ---
SHIFT SUMMARY NO ACUTE EVENTS T/O NIGHT. PT REMAINS INTUBATED AND OFF SEDATION. ON AC/VC T/O NIGHT. NO SETTING CHANGES SINCE PREVIOUS NOTE. PT MORE ALERT THIS AM. WITH FAMILY TALKING TO PT, PT ABLE TO MOVES TOES ON COMMAND, LOOK SIDE TO SIDE, AND NOD HEAD YES/NO TO QUESTIONS. PT SHOOK HEAD WHEN ASKED IF IN PAIN. PT NODDED HEAD WHEN ASKED IF HE IS "GOOD". UNABLE TO SQUEEZE HANDS BUT MOVES ARMS SPONT. PICTURE TAKEN OF EXCORIATIONS ON COCCYX AND IN CHART. BED BATH GIVEN. VSS. MAP GREATER THEN 60. TF AT GOAL. HARLEY HAD 40MLS OF URINE OUTPUT. RECTAL TUBE WITH 700ML'S OUT. FAMILY AT BEDSIDE T/O NIGHT. WILL REPORT OFF TO ONCOMING RN.
--- NOTE | 2023-05-10 07:30 | NUR ---
ASSUMED CARE: PT RESTING IN BED, AWAKE, BLINKING, FOLLOWING COMMANDS SLOWLY WHEN SISTERS SPEAK IN HIS [place] LANGUAGE. INTUBATED, ON PRESSURE SUPPORT AT 7/5 WITH 30% FIO2. NSR IN 80S ON TELE. FAMILY DENIES NEEDS OR CONCERNS AT THIS TIME.
--- NOTE | 2023-05-10 10:00 | NUR ---
RT AT BEDSIDE. PT'S RR MID 20S. RT SWITCHED PT BACK TO SETTINGS OF AC 16/450/5/30%
[2023-05-10] MEDS ORDERED: Albumin (Human) 25gm/100ml 100 ML IV ONE ×2 (10:55→16:00)
--- NOTE | 2023-05-10 11:00 | NUR ---
FAMILY CALLED STAFF IN BECAUSE ETT ADHESIVE AND SECUREMENT DEVICE WERE LOOSE. CALL TO RT. DR HEIN AT BEDSIDE WITH ULTRASOUND TO DETERMINE PLACEMENT OF CATH. INSTRUCTED FOR 1L BOLUS OF FLUIDS AND ALBUMIN TO BE ADMINISTERED. ORDERS PLACED.
[2023-05-10] MEDS ORDERED: NS 1,000 ML IV ONE ×3 (11:13→12:35)
--- NOTE | 2023-05-10 11:34 | NUR ---
FAMILY CALLED STAFF TO BEDSIDE, UPSET THAT [facility]CDS HAD NOT BEEN REMOVED AND THAT REPOSITIONING HAD NOT BEEN COMPLETED. STAFF REPOSITIONED PT AND COMPLETED MED PASS AND CALLED GUEST EXPERIENCE CAPTAIN TO BEDSIDE. DIRECTOR HAS ALSO BEEN CALLED TO SPEAK WITH FAMILY. FAMILY AWARE THAT DR HEIN IS NOT HERE YET TO DETERMINE IF HE OR IR WILL BE PLACING DIALYSIS CATH.
--- NOTE | 2023-05-10 11:38 | NUR ---
NURSE AT BEDSIDE TO START 1L BOLUS PER ORDERS. FAMILY DECLINED REPOSITION AND ORAL CARE AT THIS TIME BECAUSE THEY FELT PT LOOKED COMFORTABLE. AWAITING ALBUMIN TO START THAT MED WELL.
--- NOTE | 2023-05-10 12:32 | NUR ---
FIRST BOLUS OF FLUIDS IS COMPLETED AND ALBUMIN IS RUNNING. DISCUSSED WITH DATABASE DESIGN ANALYST AND DR HEIN. 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 INSTRUCTED TO START SECOND BOLUS OF FLUIDS AND DR WILL PLACE TRIALYSIS CATH SHORTLY
--- NOTE | 2023-05-10 13:27 | NUR ---
PT'S MAPS REMAIN IN THE 50S WITH SECOND FLUID BOLUS RUNNING AND ALBUMIN COMPLETED. MOVED BP CUFF TO RIGHT BICEP AND CHECKED BLOOD RETURN OF RIGHT FA IV. POSITIVE, FAST BLOOD RETURN AND EASY FLUSH. LEVOPHED STARTED AT 2MCG/HR. FAMILY AT BEDSIDE AND AWARE.
--- NOTE | 2023-05-10 16:05 | NUR ---
DR HEIN CAME TO BEDSIDE TO PLACE TRIALYSIS CATH TO RIGHT GROIN. STERILE TECHNIQUE USED. LEVOPHED MOVED FROM FOREARM TO IV LINE OF TRIALYSIS CATH. PT TOLERATED PROCEDURE WELL.
[2023-05-10] MEDS ORDERED: Anticoagulant Sod Citrate Soln 3 ML SYR INJ PRN (16:20)
--- NOTE | 2023-05-10 18:11 | NUR ---
SHIFT SUMMARY: DR PATRICK INSERTED TRIALYSIS CATH TODAY. DIALYSIS NURSE AT BEDSIDE WELL DR ZAMBRANO. TITRATED LEVOPHED TO 10MCG/HR TO IMPROVE DIALYSIS TOLERANCE. FAMILY WILL RETURN AFTER DIALYSIS. VENT SETTINGS REMAINS AC 16/450/5/30%. PT'S NEURO STATUS HAS IMPROVED THIS SHIFT AND PT IS NODDING TO YES/NO QUESTIONS AND FOLLOWING COMMANDS. NO ACUTE NEEDS AT THIS TIME.
[2023-05-10] MEDS ORDERED: Albumin Human 50 ML IV PRN (18:40)
[2023-05-11] VITALS (102 sets, daily range): BP systolic 90–133; BP diastolic 34–104
[2023-05-11 00:26] LABS: Hematocrit 18.4 % (37.0-53.0); Hemoglobin 6.1 g/dL (13.5-17.5)
[2023-05-11] MEDS ORDERED: Phytonadione 10 MG in NS 50 ML IV ONE (01:55)
[2023-05-11 05:36] LABS: BASOPHILS ABSOLUTE AUTO 0.12 K/mm3 (0.00-0.23); BASOPHILS PERCENT AUTO 0 % (0-2); EOSINOPHILS ABSOLUTE AUTO 0.43 K/mm3 (0.00-0.68); EOSINOPHILS PERCENT AUTO 1 % (0-6); Hematocrit 18.8 % (37.0-53.0); Hemoglobin 6.2 g/dL (13.5-17.5); IMMATURE GRAN ABSOLUTE AUTO 0.96 K/mm3 (0.00-0.10); IMMATURE GRAN PERCENT AUTO 3 % (0-1); LYMPHOCYTES ABSOLUTE AUTO 1.45 K/mm3 (0.84-5.20); LYMPHOCYTES PERCENT AUTO 5 % (21-46); MONOCYTES ABSOLUTE AUTO 3.37 K/mm3 (0.16-1.47); MONOCYTES PERCENT AUTO 11 % (4-13); Mean Corpuscular HGB 27.9 pg (26.0-34.0); Mean Corpuscular Volume 85 fL (80-100); Mean Platelet Volume 11.7 fL (9.1-12.4); NEUTROPHILS ABSOLUTE AUTO 23.61 K/mm3 (1.96-9.15); NEUTROPHILS PERCENT AUTO 79 % (41-73); NRBC ABSOLUTE 0.05 K/mm3 (0.00-0.02); NRBC Auto 0.2 /100 WBC (0.0-0.2); Platelet Count 109 K/mm3 (150-400); RDW Coefficient Variation 19.4 % (11.7-14.2); RDW Standard Deviation 53.4 fL (35.1-46.3); Red Blood Cell Count 2.22 M/mm3 (4.30-5.90); White Blood Cell Count 29.94 K/mm3 (4.00-11.30)
[2023-05-11 05:53] LABS: International Normalized Ratio 1.98
[2023-05-11 06:04] LABS: Albumin, Blood 1.9 g/dL (3.4-5.0); Anion Gap 10 mmol/L (6-16); Blood Urea Nitrogen 135 mg/dL (8-24); Bun/Creatinine Ratio 33.1 (12.0-20.0); CO2, Blood 24 mmol/L (21-32); Calcium, Blood 6.4 mg/dL (8.5-10.1); Chloride, Blood 105 mmol/L (98-108); Creatinine, Blood 4.08 mg/dL (0.60-1.20); Glomerular Filtration Rate 17 (60-); Glucose, Blood 126 mg/dL (70-99); Potassium, Blood 4.8 mmol/L (3.5-5.5); Sodium, Blood 139 mmol/L (136-145)
[2023-05-11 06:07] LABS: Phosphorus, Blood 8.4 mg/dL (2.5-4.9)
[2023-05-11] MEDS ORDERED: Anticoagulant Sod Citrate Soln 3 ML SYR INJ PRN (07:40)
[2023-05-11] MEDS ORDERED: Albumin (Human) 25gm/100ml 100 ML IV SCH ×2 (07:45→14:35)
--- NOTE | 2023-05-11 08:26 | NUR ---
SHIFT SUMMARY PT INTUBATED AND ON NO SEDATION. AC/VC 15/450/5/30%. RR 20-34. PT ALERT AND FOLLOWS DIRECTIONS, ATTEMPTING TO WRITE ON PAPER AND COMMUNICATE. ON LEVOPHED GTT TO KEEP MAP GREATER THEN 65. VSS. TMAX 99.6. HD CATH CHECKED WITH DAY RN, SITE SOFT, DRSG C/D/I. AFTER DIALYSIS, THIS RN AND FAMILY RESOURCE MANAGEMENT SPECIALIST PLACED PT HEAD DOWN TO BOOST IN BED AND LOOK AT SITE. SITE BLEEDING, AND DRSG SATURATED. HR INCREASED TO 120'S FROM 90'S. PRESSURE DRSG, GAUZE, AND SANDBAG APPLIED. DR ZAMBRANO CALLED AND ORDER FOR 3 UNITS FFP AND CHECK H/H AT 0000. SITE CONTINUED TO BLEED AND MANUAL PRESSURE HELD APPROX 30-45 MINS. DRSG CHANGED, SMITHA APPLIED, AND SANDBAG PLACED. CALL TO DR HEIN TO NOTIFY HIM OF THE BLEEDING, AND HR. NO NEW ORDERS. FFP ADMINISTRATION DELAYED D/T BAGS NOT SCANNING FROM BLOODBANK AND NEEDING TO BE SENT BACK. H/H RESULT WITH HEMOGLOBIN OF 6.1. DR ZAMBRANO CALLED AND ORDERED PRBC AND 3 MORE FFP. SITE CONTINUED TO BLEED A MODERATE AMOUNT, AND HR SUSTAINING IN 120'S. DR HEIN CALLED AND NOTIFIED OF THIS AND PREVIOUS ORDERS FROM DR ZAMBRANO, ORDER TO GIVE VIT K, ADD ONE MORE UNIT OF FFP, AND APPLY FEMSTOP. FFP ADMINISTRATION DELAYED AGAIN D/T SCANNING PROBLEM, UNITS SENT BACK TO LAB. DRSG CHANGED, SMITHA APPLIED, AND FEMSTOP PLACED WITH RESULT OF DECREASED BLEEDING. DOPPLER PEDAL PUSLE TO RIGHT FOOT. REPEAT LABS DONE AFTER UNIT OF PRBC INFUSED WITH RESULT OF HEMOGLOBIN OF 6.2, CALL TO DR HEIN AND NOTIFIED HIM OF PT NOW HAVING RED TINGED ORAL SECRETIONS AND SPUTUM. ORDER FOR ONE MORE UNIT OF PRBC. FAMILY AT BEDSIDE T/O NIGHT, VERY ATTENTIVE AND INVOLVED IN CARE. PT APPEARED UNCOMFORTABLE AND ANXIOUS AT TIMES. OFFERED MEDICATION AND DECLINED BY FAMILY. FREQUENT REPOSITIONING OF ETT, EXTREMITIES, AND BODY APPEARED TO HELP PT. BEDSIDE REPORT GIVEN TO DAY RN.
[2023-05-11] MEDS ORDERED: Thiamine HCl 100 MG Tab PT SCH (09:00)
[2023-05-11 11:34] LABS: Hematocrit 19.2 % (37.0-53.0); Hemoglobin 6.5 g/dL (13.5-17.5)
[2023-05-11] MEDS ORDERED: CeFAZolin Sodium 1,000 MG in NS 50 ML IV SCH (12:00)
--- NOTE | 2023-05-11 13:26 | NUR ---
SBT/GROIN BLEEDING PT SWITCHED TO PRESSURE SUPPORT 10/21, FIO2 30% AT 0815 BY RT. PT MED WITH ATIVAN PER EMAR WITH GOOD EFFECT. PT TOLERATED PS UNTIL THIS TIME. PT NOW BACK TO AC 15, TV 45O, PEEP 5, FIO2 30% DUE TO CONTINUED LOW TV'S. PT RIGHT FEMORAL TRIALYSIS SITE HAS CONTINUED WITH HEAVY BLEEDING DESPITE FEMSTOP. AFTER DIALYSIS FINISHED, NEW DRESSING PLACED WITH SMITHA AND GAUZE. FEMSTOP READJUSTED. OOZING HAS SUBSIDED AT THIS TIME. 3RD UNIT OF [facility]'S INFUSING AT THIS TIME. WILL CONTINUE TO MONITOR.
--- NOTE | 2023-05-11 17:14 | NUR ---
SHIFT SUMMARY PT REMAINS INTUBATED AND NOT SEDATED. PT DROWSEY THIS SHIFT S/P PRN ATIVAN. PT CONTINUES TO OPEN EYES AND INTERACT WITH FAMILY. PT ABLE TO SQUEEZE HANDS UPON COMMAND. PT TOLERATED SBT THROUGHOUT THE MORNING. PT SWITCHED BACK TO AC 15, TV 450, PEEP 5, FIO2 30% THIS AFTERNOON. PT WITH LARGE AMOUNT OF THICK, PUENTE, BLOODY SECRETIONS WITH ETT SUCTION THIS AFTERNOON. DOBHOFF REMAINS IN PLACE WITH TF INFUSING AT GOAL RATE. VITAL SIGNS HAVE REMAINED STABLE WITH LEVOPHED INFUSING AT 4 MCG/MIN. TRIALYSIS CATH TO RIGHT FEMORAL SITE REMAINS IN PLACE AND CONTINUES TO OOZE WHEN PRESSURE IS RELIEVED. FEMSTOP WITH GAUZE/OPSITE DRESSING REMAINS IN PLACE. DIALYSIS DONE THIS SHIFT. PT RECIEVED MULTIPLE UNITS OF PRBC'S AND FFP THIS SHIFT. HARLEY TEMP PROBE REMAINS IN PLACE WITH 10 CC URINE OUTPUT NOTED THIS SHIFT. RECTAL TUBE REMAINS IN PLACE WITH LIQUID BLACK OUTPUT NOTED, DISCUSSED WITH DR HEIN. MULTIPLE FAMILY MEMBERS IN AND OUT THROUGHOUT THE SHIFT. WILL CONTINUE TO MONITOR AND REPORT OFF TO ONCOMING RN.
[2023-05-11 18:10] LABS: Hematocrit 17.7 % (37.0-53.0)
--- NOTE | 2023-05-11 19:10 | NUR ---
ASSUMED CARE OF PT AT 1900. REPORT RECEIVED AT BEDSIDE. PT PRESENTS IN BED. MAKES EYE CONTACT. ACKNOWLEDGES QUESTIONS WITH NODS OF 'YES' OR 'NO'. INTUBATED. RIGHT GROIN TRIALYSIS SITE VERIFIED WITH OFFGOING RN. IN PROCESS OF RECEIVING TRANSFUSION OF PRBC'S. NO S/S ADVERSE REACTIONS TO NOTE. FAMILY AT BEDSIDE. WILL REVIEW CHART AND PLAN OF CARE FOR THIS PT.
[2023-05-11] MEDS ORDERED: Calcium Chloride 10% 2,000 MG in NS 100 ML IV ONE (19:15)
[2023-05-12] VITALS (95 sets, daily range): BP systolic 105–147; BP diastolic 52–96
--- NOTE | 2023-05-12 03:24 | NUR ---
DRESSING OVER TRIALYSIS LINE CHANGED. SATURATED WITH BLOOD. OPTED TO HOLD DIRECT PRESSURE FOR 20 MINUTES TO SITE AFTER INJECTIONS WITH LIDOCAINE/EPINEPHERINE TO SLOW OOZING. AFTER 20 MINUTES, PT CONTINUED TO OOZE. HELD FOR ADDITIONAL 5 MINUTES. PT TOLERATES THIS WELL. SMITHA DRESSING WITH OPSITE PLACED. FEMSTOP PLACED OVER SITE. NO PRESSURE INSERTED PUMPED INTO FEMSTOP. DID CINCH DOWN FEMSTOP TO ACHIEVE 15 MM/HG. GOOD DISTAL CMS CHECKS. STRONG PEDAL PULSE. PT'S FAMILY IN ROOM. PT COMPLETES TRANSFUSION WITHOUT TRANSFUSION REACTIONS.
[2023-05-12 04:41] LABS: BASOPHILS PERCENT AUTO 1 % (0-2); EOSINOPHILS ABSOLUTE AUTO 0.24 K/mm3 (0.00-0.68); EOSINOPHILS PERCENT AUTO 1 % (0-6); Hematocrit 19.4 % (37.0-53.0); Hemoglobin 6.7 g/dL (13.5-17.5); IMMATURE GRAN ABSOLUTE AUTO 0.48 K/mm3 (0.00-0.10); IMMATURE GRAN PERCENT AUTO 2 % (0-1); LYMPHOCYTES ABSOLUTE AUTO 1.24 K/mm3 (0.84-5.20); LYMPHOCYTES PERCENT AUTO 6 % (21-46); MONOCYTES ABSOLUTE AUTO 2.55 K/mm3 (0.16-1.47); MONOCYTES PERCENT AUTO 12 % (4-13); Mean Corpuscular HGB 29.4 pg (26.0-34.0); Mean Corpuscular HGB Conc 34.5 g/dL (31.5-36.5); Mean Corpuscular Volume 85 fL (80-100); Mean Platelet Volume 12.2 fL (9.1-12.4); NEUTROPHILS ABSOLUTE AUTO 17.37 K/mm3 (1.96-9.15); NEUTROPHILS PERCENT AUTO 79 % (41-73); NRBC ABSOLUTE 0.02 K/mm3 (0.00-0.02); NRBC Auto 0.1 /100 WBC (0.0-0.2); Platelet Count 70 K/mm3 (150-400); RDW Standard Deviation 48.4 fL (35.1-46.3); Red Blood Cell Count 2.28 M/mm3 (4.30-5.90); White Blood Cell Count 21.98 K/mm3 (4.00-11.30)
[2023-05-12 04:48] LABS: International Normalized Ratio 1.85; Prothrombin Time Results 18.8 Sec (9.7-11.5)
[2023-05-12 05:43] LABS: Albumin, Blood 2.7 g/dL (3.4-5.0); Anion Gap 7 mmol/L (6-16); Blood Urea Nitrogen 98 mg/dL (8-24); Bun/Creatinine Ratio 26.6 (12.0-20.0); CO2, Blood 28 mmol/L (21-32); Chloride, Blood 104 mmol/L (98-108); Creatinine, Blood 3.69 mg/dL (0.60-1.20); Glomerular Filtration Rate 19 (60-); Glucose, Blood 101 mg/dL (70-99); Phosphorus, Blood 7.7 mg/dL (2.5-4.9); Potassium, Blood 4.9 mmol/L (3.5-5.5); Sodium, Blood 139 mmol/L (136-145)
[2023-05-12 05:50] LABS: Calcium, Blood 8.7 mg/dL (8.5-10.1)
--- NOTE | 2023-05-12 06:30 | NUR ---
OOZING FROM TRIALYSIS SITE HAS SLOWED SOME. PER AM LABS, PT'S HGB 6.7. 2 UNITS PRBC'S ORDERED. FAMILY REMAINS AT BEDSIDE. HAVE SUCTIONED PT PER ETT WITH RETURN OF BLOOD TINGED SECRETIONS. MITCHEL CONTINUE TO MONITOR PT, AND WILL GIVE REPORT OFF TO ONCOMING RN.
--- NOTE | 2023-05-12 07:00 | NUR ---
ASSUME CARE: I have assumed care of this patient.
[2023-05-12] MEDS ORDERED: Anticoagulant Sod Citrate Soln 3 ML SYR INJ PRN (09:45)
[2023-05-12 10:24] LABS: HEPATITIS B SURFACE ANTIGEN Negative (Negative)
--- NOTE | 2023-05-12 12:13 | NUR ---
PHARMACY: Called regarding cefzolin dosing. RN instructed to administer antibiotics after HD completion.
--- NOTE | 2023-05-12 12:31 | NUR ---
PROVIDER UPDATE: Dr Tyson notified of increased in-line secretions. Sputum culture ordered.
[2023-05-12 14:42] LABS: Hematocrit 25.1 % (37.0-53.0); Hemoglobin 8.7 g/dL (13.5-17.5)
--- NOTE | 2023-05-12 18:40 | NUR ---
SHIFT SUMMARY: Pt alert to voice. Before dialysis he nodded "yes" or "no" to questions and was redirectable when he'd reach up toward ETT. Since dialysis, pt less responsive and awakes to voice/gentle stimulation. Three liters were removed. He was placed on pressure support 7/5 30% shortly after dialysis and has been tolerating it well since. Sputum sample obtain for dark colored secretions. He received two units PRBC with increase in hemoglobin from 6.7 to 9.7. Trialysis catheter continues to ooze blood with dressing change x 2 today. No UOP. 400 mls dark colored, liquid stool out of rectal tube. Dobhoff in left nare at 65 cm with tube feeds running at goal. See new photos in chart of skin breakdown on coccyx and perianal area. Family has been at bedside throughout the day and receiving updates in realtime.
--- NOTE | 2023-05-12 20:00 | NUR ---
ASSUMED CARE OF PT AT 1900. REPORT RECEIVED AT BEDSIDE. PT PRESENTS IN BED. ALERT. NO SEDATION TO NOTE. FAMILY AT BEDSIDE. GROIN CHECK DONE WHICH REVEALS LARGE AMOUNT OF BLEEDING. DRESSING CHANGE. COVERED WOUND WITH SMITHA DRESSING AND SECURED WITH OPSITE. FEMSTOP PLACE WITH 15 MM/HG. GOOD DISTAL CMS CHECKS. INTUBATED WHEREAS HE MAINTAINS SATURATION > 90 PERCENT. WILL REVIEW CHART AND PLAN OF CARE.
[2023-05-12 20:16] LABS: Hematocrit 22.7 % (37.0-53.0); Hemoglobin 7.9 g/dL (13.5-17.5)
[2023-05-13] VITALS (87 sets, daily range): BP systolic 79–130; BP diastolic 51–83
[2023-05-13 04:54] LABS: BASOPHILS ABSOLUTE AUTO 0.13 K/mm3 (0.00-0.23); BASOPHILS PERCENT AUTO 1 % (0-2); EOSINOPHILS ABSOLUTE AUTO 0.38 K/mm3 (0.00-0.68); EOSINOPHILS PERCENT AUTO 2 % (0-6); Hemoglobin 7.5 g/dL (13.5-17.5); IMMATURE GRAN PERCENT AUTO 2 % (0-1); LYMPHOCYTES ABSOLUTE AUTO 1.49 K/mm3 (0.84-5.20); LYMPHOCYTES PERCENT AUTO 6 % (21-46); MONOCYTES ABSOLUTE AUTO 3.05 K/mm3 (0.16-1.47); MONOCYTES PERCENT AUTO 12 % (4-13); Mean Corpuscular HGB 29.4 pg (26.0-34.0); Mean Corpuscular HGB Conc 34.1 g/dL (31.5-36.5); Mean Corpuscular Volume 86 fL (80-100); Mean Platelet Volume 11.2 fL (9.1-12.4); NEUTROPHILS ABSOLUTE AUTO 19.32 K/mm3 (1.96-9.15); NEUTROPHILS PERCENT AUTO 77 % (41-73); Platelet Count 86 K/mm3 (150-400); RDW Coefficient Variation 16.5 % (11.7-14.2); Red Blood Cell Count 2.55 M/mm3 (4.30-5.90); White Blood Cell Count 24.97 K/mm3 (4.00-11.30)
[2023-05-13] MEDS ORDERED: Cosyntropin 0.25 MG / ML 1ML Vial IV ONE (05:00)
[2023-05-13 05:10] LABS: International Normalized Ratio 2.17; Prothrombin Time Results 21.8 Sec (9.7-11.5)
[2023-05-13 06:12] LABS: Alanine Aminotransfer (ALT/SGP <6 U/L (12-78); Albumin, Blood 2.2 g/dL (3.4-5.0); Albumin/Globulin Ratio 0.6 (0.8-1.8); Alk Phos 159 U/L (50-136); Anion Gap 7 mmol/L (6-16); Aspartate Aminotrans (AST/SGOT 63 U/L (12-37); Bilirubin, Total 13.3 mg/dL (0.1-1.0); Blood Urea Nitrogen 85 mg/dL (8-24); Bun/Creatinine Ratio 24.9 (12.0-20.0); CO2, Blood 30 mmol/L (21-32); Calcium, Blood 8.3 mg/dL (8.5-10.1); Chloride, Blood 104 mmol/L (98-108); Creatinine, Blood 3.41 mg/dL (0.60-1.20); Globulin, Blood 3.9 g/dL (2.2-4.0); Glomerular Filtration Rate 21 (60-); Glucose, Blood 120 mg/dL (70-99); Phosphorus, Blood 6.4 mg/dL (2.5-4.9); Potassium, Blood 4.6 mmol/L (3.5-5.5); Sodium, Blood 141 mmol/L (136-145); Total Protein, Blood 6.1 g/dL (6.4-8.2)
--- NOTE | 2023-05-13 06:30 | NUR ---
PT HAS HAD 4 COMPLETE BED CHANGES SECONDARY TO BLEED AND LEAKAGE OF FLEXISEAL. FAMILY HAS REMAINED AT BEDSIDE. VERY ATTENTIVE TO PT'S NEEDS. HGB HAS REMAINED > 7.0 ALTHOUGH IS DROPPING SINCE LAST TRANSFUSION. WILL CONTINUE TO MONITOR PT, AND WILL REPORT OFF TO ONCOMING RN.
--- NOTE | 2023-05-13 07:00 | NUR ---
ASSUME CARE: I have assumed care of this patient.
[2023-05-13] MEDS ORDERED: Albumin (Human) 25gm/100ml 100 ML IV SCH ×2 (08:30→08:45)
[2023-05-13] MEDS ORDERED: Anticoagulant Sod Citrate Soln 3 ML SYR INJ PRN (08:30)
[2023-05-13] MEDS ORDERED: Phytonadione 5 MG in NS 50 ML IV ONE (08:55)
[2023-05-13 12:17] LABS: Hematocrit 18.7 % (37.0-53.0); Hemoglobin 6.5 g/dL (13.5-17.5)
--- NOTE | 2023-05-13 12:42 | NUR ---
PROVIDER UPDATE: Dr Tyson notified of H/H results.
--- NOTE | 2023-05-13 19:21 | NUR ---
SHIFT SUMMARY: Pt dialyzied today today with 3 liters off. Trialysis dressing continues to leak persistantly requiring several dressing changes and FemoStop placement. Distal CMS intake in RLE. Four units FFP and two of PRBC administered today. Dobhoff became displaced and had to be replaced in right nare at 65 cm. Pt tolerated SBP all day. He is fatigued after dialysis each day, but becomes more alert again in the evening. He nots "yes" and "no" appropriately to questions. Family at bedside and updated in realtime throughout the day.
--- NOTE | 2023-05-13 20:00 | NUR ---
ASSUMED CARE OF PT AT 1900. REPORT RECEIVED AT BEDSIDE. DRESSING TO RIGHT TRIALYSIS SITE WITH DRESSING SATURATED WITH BLOOD. WILL CHANGE DRESSING. ORDER FOR LIDO/EPI SUBCUTANEOUS AROUND INSERTION SITE TO AIDE IN SLOWING OOZING OF BLOOD. PT'S IN ROOM. WILL REVIEW CHART AND PLAN OF CARE FOR THIS PT.
[2023-05-13] MEDS ORDERED: Lidocaine 2%-Epineph 1:100000 20 ML MDV INJ PRN (20:02)
[2023-05-13 20:33] LABS: Hematocrit 19.8 % (37.0-53.0); Hemoglobin 6.8 g/dL (13.5-17.5)
--- NOTE | 2023-05-13 23:03 | NUR ---
PT IN PROCESS OF FIRST OF TWO UNITS PRBC'S TRANSFUSION. TEACHING DONE WITH . PT OFFERED A DOSE OF ATIVAN WHICH HIS FAMILY AND PT HAVE REQUESTED EACH NIGHT. PT NODS HEAD 'YES' TO ATIVAN. 1 MG GIVEN WHICH HAS HELPED PT RELAX TO REST. ADDITIONAL FAMILY COMES INTO ROOM. OF NOTE: DRESSING CHANGE DONE TO RIGHT GROIN. HELD DIRECT PRESSURE FOR 25 MINUTES, STILL HAS SLOW OOZE FROM TRIALYSIS SITE. INJECTIONS OF 1% LIDOCAINE/EPI 1:100,000 DONE AROUND TRIALYSIS SITE. SMITHA DRESSING APPLIED. SECURED WITH OPSITE. FEMSTOP PLACED OVER SITE WITH 39 MM/HG PRESSURE. WILL GRADUALLY DECREASE PRESSURE. GOOD DISTAL CMS CHECKS TO RIGHT LOWER EXTREMITY. PT CURRENTLY RESTING IN BED.
[2023-05-14] VITALS (54 sets, daily range): BP systolic 85–128; BP diastolic 49–85
--- NOTE | 2023-05-14 02:25 | NUR ---
RIGHT GROIN AT TRIALYSIS SITE WITHOUT NEW BLEEDING. FEMSTOP PRESSURE DECREASED TO 13 MM/HG. GOAL WILL BE TO MOVE TOWARDS HAVING GOOD HEMOSTATIS AND BEING ABLE TO REMOVE FEMSTOP OR EVEN 5 # SANDBAG WEIGHT. GOOD DISTAL CMS CHECKS. PT DENIES PAIN. HAVE MEDICATED PT WITH 1 MG ATIVAN TO HELP WITH VENT TOLERANCE AND FOR REST. WILL CONTINUE TO MONITOR. PT NEARING COMPLETION OF SECOND OF TWO UNITS PRBC'S. NO TRANSFUSION REACTIONS TO NOTE.
[2023-05-14 04:53] LABS: BASOPHILS ABSOLUTE AUTO 0.15 K/mm3 (0.00-0.23); BASOPHILS PERCENT AUTO 1 % (0-2); EOSINOPHILS ABSOLUTE AUTO 0.39 K/mm3 (0.00-0.68); EOSINOPHILS PERCENT AUTO 2 % (0-6); Hematocrit 24.6 % (37.0-53.0); Hemoglobin 8.6 g/dL (13.5-17.5); IMMATURE GRAN ABSOLUTE AUTO 0.24 K/mm3 (0.00-0.10); IMMATURE GRAN PERCENT AUTO 1 % (0-1); LYMPHOCYTES ABSOLUTE AUTO 1.31 K/mm3 (0.84-5.20); LYMPHOCYTES PERCENT AUTO 6 % (21-46); MONOCYTES ABSOLUTE AUTO 2.64 K/mm3 (0.16-1.47); MONOCYTES PERCENT AUTO 12 % (4-13); Mean Corpuscular HGB 30.3 pg (26.0-34.0); Mean Corpuscular Volume 87 fL (80-100); Mean Platelet Volume 12.3 fL (9.1-12.4); NEUTROPHILS PERCENT AUTO 78 % (41-73); Platelet Count 79 K/mm3 (150-400); RDW Coefficient Variation 15.9 % (11.7-14.2); RDW Standard Deviation 45.9 fL (35.1-46.3); Red Blood Cell Count 2.84 M/mm3 (4.30-5.90); White Blood Cell Count 21.33 K/mm3 (4.00-11.30)
[2023-05-14] MEDS ORDERED: Cosyntropin 0.25 MG / ML 1ML Vial IV ONE (05:00)
[2023-05-14 05:10] LABS: Albumin, Blood 2.3 g/dL (3.4-5.0); Albumin/Globulin Ratio 0.6 (0.8-1.8); Bilirubin, Total 12.1 mg/dL (0.1-1.0); Bun/Creatinine Ratio 23.5 (12.0-20.0); Calcium, Blood 8.7 mg/dL (8.5-10.1); Creatinine, Blood 3.02 mg/dL (0.60-1.20); Globulin, Blood 3.8 g/dL (2.2-4.0); Phosphorus, Blood 6.6 mg/dL (2.5-4.9); Potassium, Blood 4.4 mmol/L (3.5-5.5); Total Protein, Blood 6.1 g/dL (6.4-8.2)
--- NOTE | 2023-05-14 06:44 | NUR ---
PT REMAINS HEMODYNAMICALLY STABLE THIS NIGHT. HAVE PROGRESSIVELY RELEASED PRESSURE FROM RIGHT GROIN SITE. SMITHA DRESSING WITH UNCHANGED SHADOW DRAINAGE. FEMSTOP OFF AT THIS TIME. DID UPDATE FAMILY. REMAINS WITH GOOD DISTAL CMS CHECKS. PT REMAINS WITH TEMP MAX OF 100.0 THIS MORNING. WITH ETT SUCTIONING NO LONGER RETURNING BLOOD TINGED SECRETIONS. WILL CONTINUE TO MONITOR PT, AND WILL REPORT OFF TO ONCOMING RN.
[2023-05-14] MEDS ORDERED: Anticoagulant Sod Citrate Soln 3 ML SYR INJ PRN (07:40)
[2023-05-14] MEDS ORDERED: Pantoprazole Sodium 40 MG Injection IV SCH (09:00)
--- NOTE | 2023-05-14 11:51 | NUR ---
PLANNED TO HAVE A 3 HR DIALYSIS TX THIS MORNING AT THE PT BEDSIDE IN ICU13. AFTER DISCUSSING THIS WITH THE TRANSMITTER TESTER AND THE EXCESSIVE BLOOD LOSS FROM HIS TEMP CVC FEMORAL SITE OVER THE PAST FEW DAYS, ESPECIALLY DURING DIALYSIS TREATMENT YESTERDAY AND THE CONSIDERABLE BLOOD LOSS HEADING TO CRITICALLY LOW H&H AND MULTIPLE UNITS FFP AND BLOOD TRANSFUSSIONS. ITS BEEN DETERMINED THAT WE WILL GIVE HIM A BREAK TODAY IN [place] TO SLOW THE BLEEDING AND GIVE IT A REST FOR THE DAY. POSSIBLE THAT HE WILL RECIEVE A NEW ACCESS PLACEMENT AND WE MITCHEL PROCEED TREATMENTS WITH THE NEW LINE. WILL COMMUNICATE WITH DIALYSIS TEAM AND TRANSMITTER TESTER AND REASSESS PLANS FOR TREATMENT TOMORROW.
[2023-05-14 17:03] LABS: Hematocrit 25.4 % (37.0-53.0); Hemoglobin 8.8 g/dL (13.5-17.5)
--- NOTE | 2023-05-14 17:23 | NUR ---
SHIFT SUMMARY NO ACUTE CHANGES THIS SHIFT. PT REMAINS INTUBATED AND NOT SEDATED. PT HAS REMAINED ON PRESSURE SUPPORT OF 10/5, FIO2 30%. PT HAS REMAINED AWAKE AND ALERT MOST OF THIS SHIFT. PT ABLE TO FOLLOW SIMPLE COMMANDS AND NOD HEAD TO QUESTIONS. PT WITH PERIODS OF ANXEITY AND RESTLESSNESS. PT MED WITH ATIVAN PER EMAR. VITAL SIGNS HAVE REMAINED STABLE. DOBHOFF REMAINS IN PLACE WITH TF INFUSING AT GOAL RATE. TRIALYSIS CATH TO RIGHT FEMORAL SITE IN PLACE WITHOUT ANY NEW BLEEDING THIS SHIFT. DRESSING REMAINS INTACT. HARLEY TEMP PROBE REMAINS IN PLACE WITH 20 ML DARK TEA COLORED OUTPUT NOTED. RECTAL TUBE REMAINS IN PLACE WITH LIQUID/SOFT BLACK OUTPUT NOTED. PT REMAINS JAUNDICED AND EDEMATOUS. MULTIPLE FAMILY MEMBERS IN AND OUT THROUGHOUT THE SHIFT. WILL CONTINUE TO MONITOR AND REPORT OFF TO ONCOMING RN.
--- NOTE | 2023-05-14 19:53 | NUR ---
ASSUMED CARE AT 1900 PATIENT IS ALERT AND ORIENTED TO SELF AND FOLLOWING SIMPLE COMMANDS. NODS YES/NO TO QUESTIONS. PATIENT REMAINS INTUBATED ON SPONT PS 10/5 FI02 30%, RR 19. RIGHT UPPER LUNG SOUNDS COARSE. SOME THICK WHITE SECRETIONS FROM ETT. HR ST 120s, BP STABLE. DOBHOFF IN PLACE WITH TF AT GOAL RATE. TEMP HARLEY PATENT AND DRAINING MINIMAL TEA/SEDIMENT URINE TO GRAVITY. AT START OF MY SHIFT DAYSHIFT HAD JUST PLACED FEMSTOP OVER TRIALYSIS ACCESS SITE DUE TO BLEEDING. WILL MONITOR SITE AND REMOVE WHEN POSSIBLE. RECTAL TUBE PATENT AND DRAINING DARK BROWN/BLACK STOOL TO GRAVITY. PATIENT REPOSITIONED. FAMILY AT BEDSIDE. CALL LIGHT IN REACH
[2023-05-14] MEDS ORDERED: FentaNYL Citrate 50 MCG/ML 2 ML Injection IV PRN (22:25)
--- NOTE | 2023-05-14 23:58 | NUR ---
FEMSTOP DEFLATED, NO BLEEDING PRESENT NEW DRESSING PLACED, APPROX AN HOUR LATER BANDAGE SOAKED IN BLOOD AGAIN. FEMSTOP PLACED AGAIN TO HOLD PRESSURE ON SITE
[2023-05-15] VITALS (110 sets, daily range): BP systolic 77–131; BP diastolic 43–85
[2023-05-15 01:39] LABS: Acinetobacter baumannii DNA Not Detected copy/mL (NOT DETECT); Enterobacter cloacae DNA Not Detected copy/mL (NOT DETECT); Escherichia coli DNA Not Detected copy/mL (NOT DETECT); Haemophilus influenzae DNA Not Detected copy/mL (NOT DETECT); Klebsiella aerogenes DNA Not Detected copy/mL (NOT DETECT); Klebsiella oxytoca DNA Not Detected copy/mL (NOT DETECT); Klebsiella pneumoniae DNA Not Detected copy/mL (NOT DETECT); Moraxella catarrhalis DNA Not Detected copy/mL (NOT DETECT); Proteus sp DNA Not Detected copy/mL (NOT DETECT); Pseudomonas aeruginosa DNA Not Detected copy/mL (NOT DETECT); Serratia marcescens DNA Not Detected copy/mL (NOT DETECT); Staphylococcus aureus DNA Not Detected copy/mL (NOT DETECT); Streptococcus agalactiae DNA Not Detected copy/mL (NOT DETECT); Streptococcus pneumoniae DNA Not Detected copy/mL (NOT DETECT); Streptococcus pyogenes DNA Not Detected copy/mL (NOT DETECT)
[2023-05-15 01:40] LABS: Adenovirus DNA Not Detected (NOT DETECT); Chlamydia pneumonia Not Detected (NOT DETECT); Human Coronavirus RNA Not Detected (NOT DETECT); Human Metapneumovirus RNA Not Detected (NOT DETECT); Influenza virus A RNA Not Detected (NOT DETECT); Influenza virus B RNA Not Detected (NOT DETECT); Legionella pneumophila Not Detected (NOT DETECT); Mycoplasma pneumoniae Not Detected (NOT DETECT); Parainfluenza virus RNA Not Detected (NOT DETECT); Respiratory syncytial Vir RNA Not Detected (NOT DETECT); Rhinovirus+Enterovirus RNA Not Detected (NOT DETECT)
[2023-05-15 03:47] LABS: BASOPHILS ABSOLUTE AUTO 0.15 K/mm3 (0.00-0.23); BASOPHILS PERCENT AUTO 1 % (0-2); EOSINOPHILS ABSOLUTE AUTO 0.42 K/mm3 (0.00-0.68); EOSINOPHILS PERCENT AUTO 2 % (0-6); Hematocrit 24.2 % (37.0-53.0); Hemoglobin 8.3 g/dL (13.5-17.5); IMMATURE GRAN ABSOLUTE AUTO 0.22 K/mm3 (0.00-0.10); IMMATURE GRAN PERCENT AUTO 1 % (0-1); LYMPHOCYTES ABSOLUTE AUTO 1.44 K/mm3 (0.84-5.20); LYMPHOCYTES PERCENT AUTO 7 % (21-46); MONOCYTES ABSOLUTE AUTO 2.61 K/mm3 (0.16-1.47); MONOCYTES PERCENT AUTO 12 % (4-13); Mean Corpuscular HGB 29.9 pg (26.0-34.0); Mean Corpuscular HGB Conc 34.3 g/dL (31.5-36.5); Mean Corpuscular Volume 87 fL (80-100); Mean Platelet Volume 11.7 fL (9.1-12.4); NEUTROPHILS PERCENT AUTO 77 % (41-73); Platelet Count 90 K/mm3 (150-400); RDW Coefficient Variation 17.2 % (11.7-14.2); RDW Standard Deviation 48.8 fL (35.1-46.3); Red Blood Cell Count 2.78 M/mm3 (4.30-5.90); White Blood Cell Count 21.34 K/mm3 (4.00-11.30)
[2023-05-15 03:59] LABS: International Normalized Ratio 2.08
[2023-05-15 04:08] LABS: Magnesium, Blood 2.9 mg/dL (1.6-2.4)
[2023-05-15 04:19] LABS: Alanine Aminotransfer (ALT/SGP <6 U/L (12-78); Albumin, Blood 2.1 g/dL (3.4-5.0); Albumin/Globulin Ratio 0.5 (0.8-1.8); Alk Phos 146 U/L (50-136); Anion Gap 6 mmol/L (6-16); Aspartate Aminotrans (AST/SGOT 54 U/L (12-37); Bilirubin, Direct 6.7 mg/dL (0.0-0.3); Blood Urea Nitrogen 87 mg/dL (8-24); Bun/Creatinine Ratio 20.9 (12.0-20.0); CO2, Blood 32 mmol/L (21-32); Calcium, Blood 8.4 mg/dL (8.5-10.1); Chloride, Blood 102 mmol/L (98-108); Creatinine, Blood 4.17 mg/dL (0.60-1.20); Globulin, Blood 4.1 g/dL (2.2-4.0); Glomerular Filtration Rate 17 (60-); Glucose, Blood 123 mg/dL (70-99); Phosphorus, Blood 8.6 mg/dL (2.5-4.9); Potassium, Blood 5.1 mmol/L (3.5-5.5); Sodium, Blood 140 mmol/L (136-145); Total Protein, Blood 6.2 g/dL (6.4-8.2)
--- NOTE | 2023-05-15 06:00 | NUR ---
SHIFT SUMMARY PATIENT REMAINS ALERT, ORIENTED TO SELF AND FOLLOWING COMMANDS. REMAINS INTUBATED VENT SETTINGS AC PC 16/ PEEP 8 FI02 30%, SWITCHED FROM SPONT AT APPROX 2200 BY RT DUE TO PAIN AND AGITATION. MEDICATED PATIENT PER EMAR AND ORDERS FOR PAIN MEDICATION PER . PAIN IN RIGHT LEG GROIN FROM FEMSTOP. TRIALYSIS SITE BLEEDING NEEDING CONSTANT PRESSURE, INJECTED AROUND THE SITE WELL. HR ST 120, BP STABLE. HARLEY CATH WITH 20 MLS OUT THIS SHIFT. RECTAL TUBE WITH 100 MLS DARK BROWN/BLACK STOOL. BEDBATH AND LINEN CHANGE THIS SHIFT DUE TO OOZING GROIN SITE. REPOSITIONED Q2 HOURS. FAMILY AT BEDSIDE THROUGH THE NIGHT.
--- NOTE | 2023-05-15 11:00 | NUR ---
NEPHROLOGY PROVIDER CHANGE PER THE REQUEST OF PT SISTER AND OTHER FAMILY MEMBERS, THEY WOULD LIKE TO HAVE DR SANCHES SEE THE PT INSTEAD OF DR ZAMBRANO. DR ZAMBRANO NOTIFIED AND AGREEDED TO HAVE CARE OF NEPHROLOGY ISSUES TRANSFERED TO DR SANCHES AT THIS TIME. DR SANCHES NOTIFIED AND HAS COME TO BEDSIDE TO SEE PT. NEW ORDERS RECIEVED.
[2023-05-15] MEDS ORDERED: Darbepoetin Alfa In Albumn Sol 40 MCG/0.4 ML SC ONE (12:30)
[2023-05-15 12:49] LABS: HEPATITIS B SURFACE ANTIBODY 12.04 IU/L
[2023-05-15] MEDS ORDERED: Albumin (Human) 25gm/100ml 100 ML IV SCH (12:55)
[2023-05-15] MEDS ORDERED: Midodrine 5 MG Tab PO SCH (13:00)
[2023-05-15 13:04] LABS: Hematocrit 21.7 % (37.0-53.0); Hemoglobin 7.5 g/dL (13.5-17.5)
--- NOTE | 2023-05-15 13:12 | NUR ---
GROIN SITE BLEEDING PT WITH CONTINUED GROIN SITE BLEEDING S/P DIALYSIS STARTING. NEW DRESSING PLACED WITH FEMSTOP. BLEEDING HAS SLOWED. DIALYSIS FLOW DECREASED WITH PRESSURE TO GROIN SITE. TRACTION APPLIED TO TRIALYSIS LINE WITH RETURN OF DIALYSIS FLOW. DISCUSSED WITH DR MARES. PLAN TO REMOVE FEMORAL TRIALYSIS CATHETER AFTER THIS DIALYSIS SESSION IS DONE. PLAN TO PLACE PICC TODAY AND NEW TRIALYSIS LINE WEDNESDAY PER DR MARES. PT RESTARTED ON LEVOPHED AT 2 MCG/MIN.
--- NOTE | 2023-05-15 15:34 | NUR ---
Care Conference: Met with pt's family on 05/13. I had initially planned to meet with pt's to offer support and answer any questions she may have. However, a large gathering of family arrived with , and pt's sister states they were, "Very nervous" about what I was going to talk about, stating they were afraid I was going to tell them we were "giving up" on him. I apologized, and attempted to reassure them I was only offering support and answering any questions she may have. The pt's sister states they have been receiving daily updates from the hospitalists, and that is working well for them. I asked about the latest update they had been given, and the sister replied the updates "have all been very positive", and they're understanding is that the patient is "getting a little bit better everyday". She appears to be the spokesperson of the group, and continues that their long-term goal is to take the patient home, for him to make a full recovery, and they "can't think about anything but that for now". The sister also reports they have "complete loulou in the staff", and they will reach out to Palliative Care for support if and when they feel they need it. The family is in agreement that for now, they will continue to recieve their updates and information solely from the hospitalist and intensivists. Palliative care will remain available if this changes.
[2023-05-15] MEDS ORDERED: Tranexamic Acid 100 ML IV ONE (16:25)
--- NOTE | 2023-05-15 17:32 | NUR ---
SHIFT SUMMARY PT REMAINS INTUBATED AND LIGHTLY SEDATED AT THIS TIME. VENT SETTINGS REMAIN AC/PC RR 16, 14/8, FIO2 30%. PT WITH MODERATE AMOUNT OF THICK WHITE SECRETIONS WITH ETT SUCTION. PT STARTED ON PROPOFOL DURING DIALYSIS THIS SHIFT. PT MED WITH ATIVAN AND FENTANYL PRN PER EMAR. PT WITH INCREASING PERIODS OF RESTLESSNESS. DOBHOFF REMAINS IN PLACE WITH TF INFUSING AT GOAL RATE. TRIALYSIS CATH TO RIGHT FEMORAL SITE WITH SEVERE BLEEDING THIS AFTERNOON DURING DIALYSIS. PICC PLACED TO [facility] WITH PRESSURE DRESSING IN PLACE. LEVOPHED INFUSING AT 2 MCG/MIN AT THIS TIME. PLANS TO PULL RIGHT FEMORAL TRIALYSIS CATH AT 1750, FOLLOWING DDAVP AND TXA IVPB. SITE WITH FEMSTOP IN PLACE WITH CONTROL OF BLEEDING AT THIS TIME. HARLEY TEMP PROBE REMAINS IN PLACE WITH SCANT TEA COLORED URINE OUTPUT THIS SHIFT. RECTAL TUBE REMAINS IN PLACE WITH LIQUID/SOFT BROWN OUTPUT NOTED. PT REMAINS EDEMATOUS/JAUNDICED THROUGHOUT. VITAL SIGNS STABLE THROUGHOUT MOST OF THIS SHIFT. MULTIPLE FAMILY MEMBERS IN AND OUT THROUGHOUT THE SHIFT. WILL CONTINUE TO MONITOR AND REPORT OFF TO ONCOMING RN.
[2023-05-15 19:28] LABS: BASOPHILS ABSOLUTE AUTO 0.18 K/mm3 (0.00-0.23); BASOPHILS PERCENT AUTO 1 % (0-2); EOSINOPHILS ABSOLUTE AUTO 0.55 K/mm3 (0.00-0.68); EOSINOPHILS PERCENT AUTO 3 % (0-6); Hematocrit 22.5 % (37.0-53.0); Hemoglobin 7.7 g/dL (13.5-17.5); IMMATURE GRAN ABSOLUTE AUTO 0.15 K/mm3 (0.00-0.10); IMMATURE GRAN PERCENT AUTO 1 % (0-1); LYMPHOCYTES PERCENT AUTO 5 % (21-46); MONOCYTES ABSOLUTE AUTO 2.28 K/mm3 (0.16-1.47); MONOCYTES PERCENT AUTO 12 % (4-13); Mean Corpuscular HGB 29.8 pg (26.0-34.0); Mean Corpuscular HGB Conc 34.2 g/dL (31.5-36.5); Mean Corpuscular Volume 87 fL (80-100); Mean Platelet Volume 11.9 fL (9.1-12.4); NEUTROPHILS ABSOLUTE AUTO 15.31 K/mm3 (1.96-9.15); NEUTROPHILS PERCENT AUTO 79 % (41-73); Platelet Count 75 K/mm3 (150-400); RDW Coefficient Variation 17.1 % (11.7-14.2); RDW Standard Deviation 49.3 fL (35.1-46.3); Red Blood Cell Count 2.58 M/mm3 (4.30-5.90); White Blood Cell Count 19.47 K/mm3 (4.00-11.30)
[2023-05-15] MEDS ORDERED: NS 500 ML IV SCH (20:00)
--- NOTE | 2023-05-15 20:44 | NUR ---
ASSUMED CARE AT 1900 PATIENT IS INTUBATED AND SEDATED ON PROPOFOL, RASS -3. VENT AC PC 16 30/11 FI02 30%. RR 16. LS CLEAR-DIMINISHED. HR SR 70s, BP HYPOTENSIVE AT TIMES, WILL BE GIVING BLOOD PRODUCTS PER DR. MARES. MARISSA WITH JEVITY 1.5 AT GOAL RATE. TEMP HARLEY PATENT AND DRAINING TO GRAVITY, SCANT DARK JOE URINE, DID GET DIALYSIS TODAY. TRIALYSIS CATH TO RIGHT GROIN REMOVED ON DAYSHI, FEMSTOP REMAINS IN PLACE, NO BLEEDING AT THIS TIME. WILL DEFLATE AND LEAVE FEMSTOP IN PLACE FOR THE NIGHT LONG PULSES STRONG AND PATIENT COMFORTABLE. RECTAL TUBE PATENT AND DRAINING SOFT/LIQUID DARK BROWN/BLACK STOOL TO GRAVITY. ORAL CARE DONE AND PATIENT REPOSITIONED. FAMILY AT BEDSIDE.
[2023-05-16] VITALS (77 sets, daily range): BP systolic 94–132; BP diastolic 48–86
[2023-05-16 03:30] LABS: BASOPHILS ABSOLUTE AUTO 0.18 K/mm3 (0.00-0.23); BASOPHILS PERCENT AUTO 1 % (0-2); EOSINOPHILS ABSOLUTE AUTO 0.72 K/mm3 (0.00-0.68); EOSINOPHILS PERCENT AUTO 4 % (0-6); Hematocrit 25.1 % (37.0-53.0); Hemoglobin 8.6 g/dL (13.5-17.5); IMMATURE GRAN ABSOLUTE AUTO 0.14 K/mm3 (0.00-0.10); IMMATURE GRAN PERCENT AUTO 1 % (0-1); LYMPHOCYTES ABSOLUTE AUTO 1.13 K/mm3 (0.84-5.20); LYMPHOCYTES PERCENT AUTO 6 % (21-46); MONOCYTES ABSOLUTE AUTO 2.37 K/mm3 (0.16-1.47); MONOCYTES PERCENT AUTO 13 % (4-13); Mean Corpuscular HGB Conc 34.3 g/dL (31.5-36.5); Mean Corpuscular Volume 88 fL (80-100); Mean Platelet Volume 11.1 fL (9.1-12.4); NEUTROPHILS ABSOLUTE AUTO 13.93 K/mm3 (1.96-9.15); NEUTROPHILS PERCENT AUTO 75 % (41-73); Platelet Count 83 K/mm3 (150-400); RDW Standard Deviation 50.9 fL (35.1-46.3); Red Blood Cell Count 2.87 M/mm3 (4.30-5.90); White Blood Cell Count 18.47 K/mm3 (4.00-11.30)
[2023-05-16 03:47] LABS: Albumin, Blood 2.5 g/dL (3.4-5.0); Albumin/Globulin Ratio 0.6 (0.8-1.8); Bilirubin, Total 10.9 mg/dL (0.1-1.0); Bun/Creatinine Ratio 18.6 (12.0-20.0); Calcium, Blood 8.6 mg/dL (8.5-10.1); Creatinine, Blood 3.07 mg/dL (0.60-1.20); Magnesium, Blood 2.6 mg/dL (1.6-2.4); Phosphorus, Blood 7.2 mg/dL (2.5-4.9); Potassium, Blood 4.8 mmol/L (3.5-5.5); Total Protein, Blood 6.5 g/dL (6.4-8.2)
--- NOTE | 2023-05-16 06:34 | NUR ---
SHUFT SUMMARY PATIENT ON PROPOFOL MOST THE NIGHT, TITRATED OFF THIS AM AT APPOX 0630. VENT SETTINGS AC PC 16 14/ FI02 30%, RR 20. HR SR 80s. BP HYPOTENSIVE AT TIMES, MAP REMAINS IN THE 60s. DOBHOFF WITH TF AT GOAL RATE. TEMP HARLEY PATENT, 10 MLS JOE URINE OUT THIS SHIFT. RECTAL TUBE IN PLACE AND PATENT. MINIMAL TURNING AND MOVEMENT THROUGH THE NIGHT D/T RIGHT GROIN SITE AND CONCERNS FOR BLEEDING. FEMSTOP SLOWLY DEFLATED THEN LEFT IN PLACE UNTILL APPROX 0430 THIS AM, FEMSTOP REMOVED AND WEIGHT PLACED OVER SITE, NO BLEEDING AT THIS TIME.
[2023-05-16] MEDS ORDERED: Albumin (Human) 25gm/100ml 100 ML IV SCH (09:00)
[2023-05-16] MEDS ORDERED: Aluminum Hydroxide 320MG/5ML 473 ML PO SCH (09:00)
[2023-05-16] MEDS ORDERED: Calcium Acetate 667 MG Gel Cap PO SCH (09:00)
[2023-05-16] MEDS ORDERED: Bumetanide 0.25 MG/ML 4ML ViaL IV SCH (09:00)
--- NOTE | 2023-05-16 16:43 | NUR ---
SHIFT SUMMARY NO ACUTE CHANGES THIS SHIFT. PT REMAINS INTUBATED AND NOT SEDATED. VENT SETTINGS REMAIN AC/PC 16, 14/8, FIO2 30%. PT WITH INCREASING AMOUNT OF THICK, WHITE SECRETIONS WITH ETT SUCTION THIS AFTERNOON. PT MED WITH ATIVAN AND FENTANYL PER EMAR. PT CONTINUES TO BE EASILY AROUSEABLE TO VERBAL STIMULI AND INTERACT WITH FAMILY AT BEDSIDE. PT WITH TWO ATTEMPTS REACHING FOR ETT, BUT ABLE TO BE REDIRECTED, FAMILY REMAINS PRESENT AT BEDSIDE TO REDIRECT PT. DOBHOFF REMAINS IN PLACE WITH TF INFUSING AT GOAL RATE. PICC TO BROOK[place]N REMAINS C/D/I WITHOUT OOZING NOTED. NS INFUSING TKO. DRESSING TO RIGHT FEMORAL SITE REMAINS C/D/I, WITHOUT OOZING. HARLEY TEMP PROBE REMAINS IN PLACE WITH SCANT OUTPUT NOTED. RECTAL TUBE WITH SOFT/LIQUID BROWN OUTPUT NOTED. VITAL SIGNS HAVE REMAINED STABLE. WILL CONTINUE TO MONITOR AND REPORT OFF TO ONCOMING RN.
[2023-05-16] MEDS ORDERED: Furosemide 10 MG/ML 10ML Vial IV ONE (18:00)
--- NOTE | 2023-05-16 19:00 | NUR ---
ASSUMED CARE OF PT AT 1900 PT VENTILATED WITH NO SEDATION. ONLY TKO RUNNING TO PICC LINE IN LEFT UPPER ARM. PT IS COOPERATIVE WITH CARE, NODS HEAD YES AND NO. FAMILY AT BEDSIDE. TEMP HARLEY IN PLACE DRAINING DARK YELLOW/TEA URINE (SCANT). VITALS WNL FOR PT AT THIS TIME. SEE FULL ASSESSMENT FOR FURTHER INFORMATION.
[2023-05-17] VITALS (59 sets, daily range): BP systolic 98–128; BP diastolic 47–67
[2023-05-17 04:01] LABS: Hematocrit 25.9 % (37.0-53.0); Hemoglobin 8.8 g/dL (13.5-17.5); Mean Corpuscular HGB 29.8 pg (26.0-34.0); Mean Corpuscular Volume 88 fL (80-100); Mean Platelet Volume 12.6 fL (9.1-12.4); Platelet Count 88 K/mm3 (150-400); RDW Coefficient Variation 17.3 % (11.7-14.2); RDW Standard Deviation 52.5 fL (35.1-46.3); Red Blood Cell Count 2.95 M/mm3 (4.30-5.90); White Blood Cell Count 19.88 K/mm3 (4.00-11.30)
[2023-05-17 04:17] LABS: Magnesium, Blood 2.9 mg/dL (1.6-2.4)
[2023-05-17 04:30] LABS: International Normalized Ratio 2.13; Prothrombin Time Results 21.4 Sec (9.7-11.5)
[2023-05-17 04:48] LABS: Alanine Aminotransfer (ALT/SGP <6 U/L (12-78); Albumin, Blood 2.7 g/dL (3.4-5.0); Albumin/Globulin Ratio 0.6 (0.8-1.8); Alk Phos 143 U/L (50-136); Anion Gap 8 mmol/L (6-16); Aspartate Aminotrans (AST/SGOT 48 U/L (12-37); Bilirubin, Direct 6.3 mg/dL (0.0-0.3); Bilirubin, Indirect 4.8 mg/dL (0.1-0.7); Bilirubin, Total 11.1 mg/dL (0.1-1.0); Blood Urea Nitrogen 76 mg/dL (8-24); Bun/Creatinine Ratio 18.7 (12.0-20.0); CO2, Blood 30 mmol/L (21-32); Calcium, Blood 8.9 mg/dL (8.5-10.1); Chloride, Blood 98 mmol/L (98-108); Creatinine, Blood 4.07 mg/dL (0.60-1.20); Globulin, Blood 4.2 g/dL (2.2-4.0); Glomerular Filtration Rate 17 (60-); Glucose, Blood 121 mg/dL (70-99); Phosphorus, Blood 8.3 mg/dL (2.5-4.9); Potassium, Blood 5.3 mmol/L (3.5-5.5); Sodium, Blood 136 mmol/L (136-145); Total Protein, Blood 6.9 g/dL (6.4-8.2)
--- NOTE | 2023-05-17 06:32 | NUR ---
SHIFT SUMMARY PT RESTED MOST OF THE NIGHT WITHOUT ACUTE CAHNGES. VITALS WNL. FLEX SEAL IN PLACE AND DRAINING BROWN STOOL. 700 MLS STOOL OUT THIS SHIFT. TEMP HARLEY IN PLACE WITH NO OUTPUT THIS SHIFT. PREV SHIFT 10 MLS TEA COLOR URINE. NSR WITHOUT ECTOPY, HR 70-80'S. REMAINS VENTED WITHOUT SEDATION. MAP >65 THIS SHIFT. CONT TO MONITOR UNTIL REPORT GIVEN TO AM RN.
--- NOTE | 2023-05-17 07:00 | NUR ---
ASSUMPTION OF CARE PT REMAINS INTUBATED WITH VENT SETTINGS AC/PC //30%. PT OPENS EYES TO VERBAL STIMULI, NODS/SHAKES HEAD TO COMMUNICATE. TUBE FEEDING INFUSING VIA DOBHOFF AT GOAL RATE. RECTAL TUBE DRAINING DARK BROWN LIQUID STOOL TO GRAVITY. HARLEY PATENT AND DRAINING SMALL AMOUNT OF DARK YELLOW/PINK URINE. CORE TEMP 99.1. FAMILY AT BEDSIDE.
[2023-05-17] MEDS ORDERED: Bumetanide 0.25 MG/ML 10ML Vial IV SCH (09:00)
--- NOTE | 2023-05-17 10:00 | NUR ---
UPDATE FAMILY UPDATED BY CORPORATE STATISTICAL FINANCIAL ANALYST. PLAN FOR FFP AND CRYO PRIOR TO TRIALYSIS PLACEMENT THIS AFTERNOON.
[2023-05-17] MEDS ORDERED: NS 500 ML IV SCH (10:10)
--- NOTE | 2023-05-17 12:57 | NUR ---
TRIALYSIS CATH/DOBHOFF TRIALYSIS CATH PLACED BY DR PATEL. PT TOLERATED WELL. CHEST XRAY TO VERIFY PLACEMENT. DOBHOFF AT 55CM, ORIGINALLY PLACED AT 65CM. PLACEMENT VERIFIED BY DR PATEL.
--- NOTE | 2023-05-17 13:33 | NUR ---
GAMING HOST AT BEDSIDE
[2023-05-17] MEDS ORDERED: Albumin (Human) 25gm/100ml 100 ML IV SCH ×2 (13:35)
[2023-05-17] MEDS ORDERED: Anticoagulant Sod Citrate Soln 3 ML SYR INJ PRN (13:55)
--- NOTE | 2023-05-17 18:37 | NUR ---
SHIFT SUMMARY PT REMAINS INTUBATED WITH VENT SETTINGS AC/PC 16/8/30%. PT HAS HAD A LARGE INCREASE IN CLEAR/PUENTE ORAL AND ETT SECRETIONS THIS AFTERNOON. HE OPENS EYES SPONTANEOUSLY AND FOLLOWS SIMPLE COMMANDS. NSR ON MONITOR WITH RATE IN 70S, MAP >65. TUBE FEEDING CONTINUES TO INFUSE VIA DOBHOFF AT GOAL RATE. RECTAL TUBE PATENT. STOOL HAS TURNED FROM DARK BROWN TO LIGHT WITH 400ML OUTPUT THIS SHIFT. TEMP HARLEY PATENT AND DRAINING, OLIGURIC WITH 20ML TEA COLORED OUTPUT. RIJ TRIALYSIS PLACED TODAY. DRESSING C/D/I. DIALYSIS COMPLETED THIS AFTERNOON. FAMILY AT BEDSIDE THROUGHOUT THE DAY AND UPDATED.
--- NOTE | 2023-05-17 20:33 | NUR ---
ASSUMED CARE AT 1900 PATIENT IS ALERT, NODS YES/NO, FOLLOWS SIMPLE COMMANDS AND ABLE TO MOVE ALL EXTREMITIES. GENERALIZED WEAKNES T/O ESPECIALLY BLE. NO SEDATION AT THIS TIME, MEDICATED PRN WITH ATIVAN FOR ANXIETY, PER EMAR. REMAINS IN VENT, SETTINGS AC PC 16 14/8 FI02 30%, RR 17, MODERATE AMOUNT OF WHITE THIN SECRETIONS. HR SR 70s, BP STABLE. DOBHOFF WITH TF AT GOAL RATE. TEMP HARLEY PATENT AND DRAINING MINIMAL AMOUNT OF TEA COLORED URINE TO GRAVITY, PATIENT RECIEVED DIALYSIS ON DAYSHIFT. RECTAL TUBE DRAINING SOFT/LIQUID LIGHT BROWN STOOL TO GRAVITY. NO BLEEDING AT RIGHT GROIN SITE, RIGHT IJ OR PICC. ORAL CARE DONE AND PATIENT REPOSITIONED. FAMILY REMAINS AT BEDSIDE. CALL LIGHT IN REACH
[2023-05-18] VITALS (51 sets, daily range): BP systolic 93–120; BP diastolic 39–65
[2023-05-18 03:29] LABS: BASOPHILS ABSOLUTE AUTO 0.19 K/mm3 (0.00-0.23); BASOPHILS PERCENT AUTO 1 % (0-2); EOSINOPHILS ABSOLUTE AUTO 1.13 K/mm3 (0.00-0.68); EOSINOPHILS PERCENT AUTO 7 % (0-6); Hematocrit 24.8 % (37.0-53.0); Hemoglobin 8.4 g/dL (13.5-17.5); IMMATURE GRAN PERCENT AUTO 1 % (0-1); LYMPHOCYTES ABSOLUTE AUTO 1.29 K/mm3 (0.84-5.20); LYMPHOCYTES PERCENT AUTO 8 % (21-46); MONOCYTES ABSOLUTE AUTO 2.09 K/mm3 (0.16-1.47); MONOCYTES PERCENT AUTO 12 % (4-13); Mean Corpuscular HGB Conc 33.9 g/dL (31.5-36.5); Mean Corpuscular Volume 89 fL (80-100); Mean Platelet Volume 11.8 fL (9.1-12.4); NEUTROPHILS ABSOLUTE AUTO 12.33 K/mm3 (1.96-9.15); NEUTROPHILS PERCENT AUTO 72 % (41-73); Platelet Count 83 K/mm3 (150-400); RDW Coefficient Variation 17.5 % (11.7-14.2); RDW Standard Deviation 54.3 fL (35.1-46.3); White Blood Cell Count 17.13 K/mm3 (4.00-11.30)
[2023-05-18 03:45] LABS: Albumin, Blood 2.4 g/dL (3.4-5.0); Albumin/Globulin Ratio 0.5 (0.8-1.8); Bilirubin, Total 10.3 mg/dL (0.1-1.0); Bun/Creatinine Ratio 16.1 (12.0-20.0); Calcium, Blood 8.7 mg/dL (8.5-10.1); Creatinine, Blood 3.29 mg/dL (0.60-1.20); Globulin, Blood 4.5 g/dL (2.2-4.0); Magnesium, Blood 2.7 mg/dL (1.6-2.4); Phosphorus, Blood 7.3 mg/dL (2.5-4.9); Potassium, Blood 4.2 mmol/L (3.5-5.5); Total Protein, Blood 6.9 g/dL (6.4-8.2)
--- NOTE | 2023-05-18 05:38 | NUR ---
SHIFT SUMMARY PATIENT REMAINS ALERT ON THE VENT. VENT SETTINGS UNCHANGED THIS SHIFT. VSS, NO ACUTE CHANGES. MEDICATED FOR ANXIETY AND PAIN THROUGH THE NIGHT PER EMAR. REPOSITIONED Q2 HOURS. FAMILY REMAINS AT BEDSIDE
--- NOTE | 2023-05-18 08:21 | NUR ---
ASSUMED CARE BEDSIDE REPORT FROM PORFIRIO PFEIFFER AT 0700. PT RESTING IN BED. INTUBATED. VENT SETTINGS CHANGED TO SPONT 10/8/30%, TV 375-425 ML, RR LOW 20'S. LUNGS CLEAR. SCANT SECRETIONS FROM ETT. +COUGH/GAG/SWALLOW REFLEX. PT FOLLOWS COMMANDS. ABLE TO MOVE ALL EXT. NODS HEAD TO YES/NO QUESTIONS. SCLERA YELLOW. EMELI. SR, RATE 80'S. BP STABLE. 3+ EDEMA TO BLE. ANASCARSA TO TRUNK, THIGHS, SCROTUM. ABD DISTENDED, FIRM, BT X 4. TUBE FEEDS PLACED ON STANDBY FOR POSSIBLE EXTUBATION. DOBHOFF TO RIGHT NARE, 55 CM. TRIALYSIS CATH TO RIJ, DRESSING C/D/I. PICC TO HERMANN. HARLEY PATENT, OLIGURIC, JOE URINE. RECTAL TUBE IN PLACE, BROWN PASTY STOOL OUT. FAMILY AT BEDSIDE. UPDATED ON CARE PLAN. WILL CONTINUE PLAN OF CARE.
[2023-05-18] MEDS ORDERED: Anticoagulant Sod Citrate Soln 3 ML SYR INJ PRN (08:35)
--- NOTE | 2023-05-18 11:16 | NUR ---
"Spiritual Care | Family Support. Met Pts. sister in the hallway and discussed the Pts. progress. Sister displays evidence of gratitude and hope. Sister verbalized gratitude for the continued support."
--- NOTE | 2023-05-18 17:56 | NUR ---
SHIFT SUMMARY/EXTUBATION PT EXTUBATED THIS SHIFT. TOLERATED WELL. PT FOLLOWS COMMANDS. WEAK VOICE. OCCASIONAL COUGH. ABLE TO MANAGE SECRETIONS. LUNGS DIM IN BASES. ON RA, O2 SATS >95%. DIALYSIS THIS SHIFT, 7L OFF. SR, RATE 70-80'S. BP STABLE. TUBE FEEDS RESUMED AT GOAL 65 ML/HR c 30ML FLUSH Q4. ABD DISTENDED, FIRM, BT X 4. RECTAL TUBE REMOVED THIS SHIFT. PT ABLE TO COMMUNICATE WHEN HE NEEDS TO HAVE BM, TWO LOOSE BROWN BMS THIS SHIFT. SKIN AROUND RECTUM EXCORIATED. HARLEY PATENT, DRAINED 35 ML TEA COLORED URINE THIS SHIFT. PICC TO HERMANN, TRIALYSIS CATH TO [facility], DRESSINGS INTACT. FAMILY UPDATED ON CARE PLAN. WILL CONTINUE PLAN OF CARE UNTIL REPORT TO ONCOMING NURSE.
--- NOTE | 2023-05-18 19:18 | NUR ---
ASSUMED CARE OF PATIENT AT 1900. PATIENT RESTING COMFORTABLY. VSS AND NO ACUTE NEEDS IDENTIFIED AT THIS TIME. SEE SHIFT ASSESSMENT FOR FULL ASSESSMENT DETAILS.
[2023-05-19] VITALS (44 sets, daily range): BP systolic 94–124; BP diastolic 43–60
[2023-05-19 04:23] LABS: Hematocrit 25.9 % (37.0-53.0); Hemoglobin 8.7 g/dL (13.5-17.5)
[2023-05-19 04:58] LABS: Albumin, Blood 2.5 g/dL (3.4-5.0); Anion Gap 5 mmol/L (6-16); Blood Urea Nitrogen 56 mg/dL (8-24); Bun/Creatinine Ratio 15.1 (12.0-20.0); CO2, Blood 33 mmol/L (21-32); Calcium, Blood 8.8 mg/dL (8.5-10.1); Chloride, Blood 98 mmol/L (98-108); Glomerular Filtration Rate 19 (60-); Glucose, Blood 115 mg/dL (70-99); Magnesium, Blood 2.8 mg/dL (1.6-2.4); Phosphorus, Blood 7.4 mg/dL (2.5-4.9); Potassium, Blood 4.5 mmol/L (3.5-5.5); Sodium, Blood 136 mmol/L (136-145)
--- NOTE | 2023-05-19 06:29 | NUR ---
SHIFT SUMMARY PT REMAINED WEAK AND CONFUSED THROUGHOUT ENTIRETY OF SHIFT. HE WAS ABLE TO FOLLOW VERBAL COMMANDS AND ATTEMPTED TO MAKE PURPOSEFUL MOVEMENTS. TMAX 99.7. REMAINED SR WITH HR IN 80'S. BP SOFT. RA UNTIL HE ATTEMPTED TO SLEEP, 2LPM VIA NC GIVEN WITH SAT'S >95%. UTILIZES BEDPAN - HAD TWO LARGE LOOSE BROWN STOOLS THIS SHIFT. HARLEY IN PLACE - OLIGURIC. 5mL UO THROUGHOUT SHIFT. TEA COLORED URINE. EXCORIATION TO BOTTOM - UPDATED PICTURE IN CHART TODAY. RIJ AND BROOKLYN, BOTH FLUSH AND DRAW WELL. PT, OT, ST ORDERED FOR TODAY. CALL LIGHT IN REACH.
[2023-05-19] MEDS ORDERED: Anticoagulant Sod Citrate Soln 3 ML SYR INJ PRN (07:05)
[2023-05-19] MEDS ORDERED: Acetaminophen 160MG / 5ML 10.15 UDC PT PRN (10:30)
--- NOTE | 2023-05-19 17:13 | NUR ---
SHIFT SUMMARY PT DID WELL THIS SHIFT. PT HAS SLEPT OFF AND ON THROUGHOUT THE DAY. WHEN AWAKE PT IS DROWSEY, BUT ABLE TO ANSWER SOME QUESTIONS APPROPRIATELY. PT WITH PERIODS OF NONSENSICAL SPEECH AND CONFUSION AT TIMES. PT ABLE TO MAKE NEEDS KNOWN. PT RECIEVED DIALYSIS THIS MORNING. TRIALYSIS CATH TO RIJ REMAINS C/D/I. PICC TO [place] SALINE LOCKED. DOBHOFF REMAINS IN PLACE WITH TF INFUSING AT GOAL RATE. PT CLEARED BY SPEECH FOR PUREE DIET THIS SHIFT, BUT PT WITH POOR APETITE. HARLEY TEMP PROBE REMAINS IN PLACE WITH MINIMAL OUTPUT NOTED. PT WITH MULTIPLE LIQUID BM'S THIS SHIFT. PT REMAINS EDEMATOUS THROUGHOUT, BUT IS CONTINUING TO IMPROVE. MULTIPLE FAMILY MEMBERS AT BEDSIDE THROUGHOUT THE DAY. VITAL SIGNS REMAIN STABLE, PT ON ROOM AIR. WILL CONTINUE TO MONITOR AND REPORT OFF TO ONCOMING RN.
--- NOTE | 2023-05-19 19:42 | NUR ---
ASSUMED CARE OF PATIENT AT 1900. VSS AND NO ACUTE NEEDS IDENTIFIED AT THIS TIME. SEE SHIFT ASSESSMENT FOR FULL DETAILS.
--- NOTE | 2023-05-19 19:44 | NUR ---
RECTAL TUBE PLACED AT 1925
[2023-05-20] VITALS (47 sets, daily range): BP systolic 94–136; BP diastolic 42–73
[2023-05-20] MEDS ORDERED: LORazepam 2 MG/ML 1ML Injection IV ONE (00:25)
[2023-05-20] MEDS ORDERED: Banana Flakes/Tos 1 EA Powder Pack PT SCH ×2 (01:31→09:00)
[2023-05-20 04:43] LABS: EOSINOPHILS PERCENT AUTO 7 % (0-6); Hematocrit 27.1 % (37.0-53.0); IMMATURE GRAN ABSOLUTE AUTO 0.11 K/mm3 (0.00-0.10); IMMATURE GRAN PERCENT AUTO 1 % (0-1); LYMPHOCYTES PERCENT AUTO 10 % (21-46); MONOCYTES ABSOLUTE AUTO 2.47 K/mm3 (0.16-1.47); MONOCYTES PERCENT AUTO 14 % (4-13); Mean Corpuscular HGB 29.6 pg (26.0-34.0); Mean Corpuscular HGB Conc 33.2 g/dL (31.5-36.5); Mean Corpuscular Volume 89 fL (80-100); Mean Platelet Volume 11.4 fL (9.1-12.4); NEUTROPHILS ABSOLUTE AUTO 11.81 K/mm3 (1.96-9.15); NEUTROPHILS PERCENT AUTO 68 % (41-73); Platelet Count 88 K/mm3 (150-400); RDW Coefficient Variation 17.9 % (11.7-14.2); RDW Standard Deviation 56.2 fL (35.1-46.3); Red Blood Cell Count 3.04 M/mm3 (4.30-5.90); White Blood Cell Count 17.35 K/mm3 (4.00-11.30)
[2023-05-20 04:49] LABS: BASOPHILS ABSOLUTE AUTO 0.06 K/mm3 (0.00-0.23); BASOPHILS PERCENT AUTO 0 % (0-2)
[2023-05-20 05:17] LABS: Magnesium, Blood 2.8 mg/dL (1.6-2.4)
[2023-05-20 05:21] LABS: Alanine Aminotransfer (ALT/SGP <6 U/L (12-78); Albumin, Blood 2.3 g/dL (3.4-5.0); Albumin/Globulin Ratio 0.5 (0.8-1.8); Alk Phos 168 U/L (50-136); Anion Gap 6 mmol/L (6-16); Aspartate Aminotrans (AST/SGOT 43 U/L (12-37); Bilirubin, Direct 5.4 mg/dL (0.0-0.3); Bilirubin, Indirect 4.3 mg/dL (0.1-0.7); Bilirubin, Total 9.7 mg/dL (0.1-1.0); Blood Urea Nitrogen 51 mg/dL (8-24); Bun/Creatinine Ratio 13.6 (12.0-20.0); CO2, Blood 32 mmol/L (21-32); Calcium, Blood 8.9 mg/dL (8.5-10.1); Chloride, Blood 95 mmol/L (98-108); Creatinine, Blood 3.74 mg/dL (0.60-1.20); Globulin, Blood 4.9 g/dL (2.2-4.0); Glomerular Filtration Rate 19 (60-); Glucose, Blood 123 mg/dL (70-99); Phosphorus, Blood 6.6 mg/dL (2.5-4.9); Potassium, Blood 4.2 mmol/L (3.5-5.5); Sodium, Blood 133 mmol/L (136-145); Total Protein, Blood 7.2 g/dL (6.4-8.2)
--- NOTE | 2023-05-20 06:04 | NUR ---
SHIFT SUMMARY PT ORIENTED TO SELF BUT REMAINED WEAK AND CONFUSED THROUGHOUT ENTIRETY OF SHIFT. HE IS ANXIOUS TO START PHYSICAL THERAPY TO GET INTO A CHAIR IN HOPES OF RELIEVING SOME OF HIS BACK DISCOMFORT. ABLE TO FOLLOW VERBAL COMMANDS AND MAKE PURPOSEFUL MOVEMENTS. SR WITH HR IN 80'S - BP STABLE. ON ROOM AIR WITH O2 SATURATIONS > 90%. RECTAL TUBE PLACED AGAIN D/T NUMEROUS LOOSE STOOLS. TF CONTINUING AT GOAL RATE TO SUPPLEMENT PT PUREED DIET. HE ONLY ATE A FEW BITES OF APPLESAUCE AND A FEW SIPS OF THICKENED BEVERAGES. BANATROL ADDED. HARLEY IN PLACE AND DRAINING TEA COLORED URINE - 15mL OUT DURING SHIFT. MEPILEX TO SACRAL WOUND REPLACED. RIJ AND PICC TO BROOKLYN FLUSH AND DRAW WELL. FAMILY AT BEDSIDE, CALL LIGHT IN REACH, WILL CONTINUE TO MONITOR AND REPORT TO ONCOMING RN.
[2023-05-20] MEDS ORDERED: Lansoprazole 15 MG TAB.RAP.DR XX SCH (07:20)
[2023-05-20] MEDS ORDERED: Nystatin 100,000 Unit/ML Susp 5 ML UDC MT SCH (17:00)
--- NOTE | 2023-05-20 18:39 | NUR ---
SHIFT SUMMARY PATIENT WAS RELIEVED OF 2.8 LITERS DURING DIALYSIS. EDEMA REMAINS 3+ IN THE LOWER EXTREMITIES. PATIENT IS NOW ABLE TO TAKE MEDICATIONS WITH APPLESAUCE AND EAT MOIST PUREED FOODS. THIN LIQUIDS ARE TOLERATED. SPUTUM CULTURE CAME BACK POSITIVE FOR VIVIAN. NYSTATIN SWISH AND SWALLOW STARTED. URINARY CATHETER REMOVED AT 1220 DUE TO IRRITATION. NO URINE OUTPUT NOTED DURING THIS SHIFT. 275ML OUPUT FROM THE RECTAL TUBE. SACRUM DRESSING CHANGED AND RECTAL TUBE COLLECTION BAG CHANGED. NEW IRRITATION NOTED AROUND THE RECTUM. LUNG SOUNDS IN THE RIGHT BASE DIMINISHED OVER THE COURSE OF THIS SHIFT. PATIENT WAS ABLE TO SIT IN A CHAIR WITH ASSISTANCE FROM THE LIFT. PATIENT DISLODGED HIS DOBBHOFF AND REQUIRED A NEW PLACEMENT. PLACEMENT CONFIRMED WITH X-RAY. PATIENT TOLERATED SITTING IN THE CHAIR WELL. PATIENT IS MOTIVATED TO GO HOME.
--- NOTE | 2023-05-20 19:28 | NUR ---
ASSUMED CARE OF PATIENT AT 1900. VITAL SIGNS STABLE AND NO ACUTE NEEDS IDENTIFIED AT THIS TIME. SEE SHIFT ASSESSMENT FOR FULL ASSESSMENT DETAILS.
[2023-05-21] VITALS (50 sets, daily range): BP systolic 96–153; BP diastolic 34–72
[2023-05-21 04:05] LABS: BASOPHILS ABSOLUTE AUTO 0.18 K/mm3 (0.00-0.23); BASOPHILS PERCENT AUTO 1 % (0-2); EOSINOPHILS ABSOLUTE AUTO 1.16 K/mm3 (0.00-0.68); EOSINOPHILS PERCENT AUTO 7 % (0-6); Hematocrit 25.6 % (37.0-53.0); Hemoglobin 8.5 g/dL (13.5-17.5); IMMATURE GRAN ABSOLUTE AUTO 0.14 K/mm3 (0.00-0.10); IMMATURE GRAN PERCENT AUTO 1 % (0-1); LYMPHOCYTES ABSOLUTE AUTO 1.54 K/mm3 (0.84-5.20); LYMPHOCYTES PERCENT AUTO 9 % (21-46); MONOCYTES ABSOLUTE AUTO 2.43 K/mm3 (0.16-1.47); MONOCYTES PERCENT AUTO 14 % (4-13); Mean Corpuscular HGB 29.8 pg (26.0-34.0); Mean Corpuscular HGB Conc 33.2 g/dL (31.5-36.5); Mean Corpuscular Volume 90 fL (80-100); Mean Platelet Volume 12.2 fL (9.1-12.4); NEUTROPHILS ABSOLUTE AUTO 11.55 K/mm3 (1.96-9.15); NEUTROPHILS PERCENT AUTO 68 % (41-73); Platelet Count 78 K/mm3 (150-400); RDW Coefficient Variation 18.6 % (11.7-14.2); RDW Standard Deviation 59.7 fL (35.1-46.3); Red Blood Cell Count 2.85 M/mm3 (4.30-5.90)
[2023-05-21 04:22] LABS: Albumin, Blood 2.6 g/dL (3.4-5.0); Anion Gap 7 mmol/L (6-16); Blood Urea Nitrogen 38 mg/dL (8-24); Bun/Creatinine Ratio 12.4 (12.0-20.0); CO2, Blood 32 mmol/L (21-32); Calcium, Blood 8.9 mg/dL (8.5-10.1); Chloride, Blood 95 mmol/L (98-108); Creatinine, Blood 3.07 mg/dL (0.60-1.20); Glomerular Filtration Rate 24 (60-); Glucose, Blood 116 mg/dL (70-99); Magnesium, Blood 2.5 mg/dL (1.6-2.4); Phosphorus, Blood 5.2 mg/dL (2.5-4.9); Sodium, Blood 134 mmol/L (136-145)
--- NOTE | 2023-05-21 06:18 | NUR ---
DR. ADHIKARI NOTIFIED OF NEW BLEEDING FROM RECTUM. BRIGHT RED BLOOD IN RECTAL TUBE IN AND AROUND RECTAL TUBE. MONITORING BP MORE CLOSELY. PT DENIES ABDOMINAL PAIN.
--- NOTE | 2023-05-21 06:20 | NUR ---
SHIFT SUMMARY PT REMAINED ORIENTED TO SELF, PLACE, AND SITUATION. HE IS TIRED TODAY REMAINS ANXIOUS TO RETURN HOME. SR WITH HR IN 80'S. BP STABLE. REMAINED ON ROOM AIR THROUGHOUT ENTIRETY OF SHIFT. RECTAL TUBE REMAINS IN PLACE. AT APPROXIMATELY 0600 VISUALIZED BRIGHT RED BLOOD IN RECTAL TUBE AND BLEEDING FROM RECTUM. DR. ADHIKARI NOTIFIED - WILL MONITOR BP MORE CLOSELY. PT DENIED ANY ABDOMINAL PAIN. HARLEY REMOVED 05/20/[address] SANCHES, WILL HOLD DIALYSIS 05/21/23. PT RECEIVED BED BATH TODAY. RIJ AND PG TO BROOKLYN BOTH FLUSH AND DRAW WELL. FAMILY AT BEDSIDE AND CALL LIGHT IN REACH. WILL CONTINUE TO MONITOR AND REPORT TO ONCOMING NURSE.
--- NOTE | 2023-05-21 08:35 | NUR ---
ASSUMED CARE BEDSIDE REPORT FROM PORFIRIO/APOORVA RN AT 0700. PT RESTING IN BED. WAKES c VERBAL STIMULI. A&OX 2. WEAK, MUMBLED SPEECH. DIFFICULT TO UNDERSTAND BUT ABLE TO MAKE NEEDS KNOWN. C/O DISCOMFORT TO RECTUM FROM RECTAL TUBE. REMOVED, 150 ML JELLY RED STOOL OUT. DR ADHIKARI AWARE. EXCORATION TO SACRUM, PHOTOS IN CHART. PT STATES HE IS ABLE TO COMMUNICATE WHEN HE NEEDS TO HAVE BM. LUNGS CLEAR, ON RA. SR, RATE 80'S. BP STABLE, MIDODRINE HELD THIS AM. 2+ EDEMA TO BLE, IMPROVED. NO PLAN FOR DIALYSIS THIS SHIFT. GENERALIZED WEAKNESS. UP TO CHAIR c LIFT. PICC TO LUE, TRIALYSIS CATH TO RIJ, DRESSINGS C/D/I. DOBHOFF TO RIGHT NARE, 65 CM, TUBE FEEDS AT GOAL. MINIMAL INTAKE FROM [facility] T[facility]. FAMILY TO BRING IN PUREED FOODS. FAMILY AT BEDSIDE, UPDATED ON PLAN OF CARE. WILL CONTINUE PLAN OF CARE.
--- NOTE | 2023-05-21 12:02 | NUR ---
Spiritual Care Family Support Met with family in the hallway. Facilitated conversations about the Pts. progress and abou thow they are holding up. The family displayed evidence of being encourgaed and verbalized gratitude for the care the Pt. is receiving and spiritual care checking on them daily.
--- NOTE | 2023-05-21 18:01 | NUR ---
SHIFT SUMMARY PT A&OX 3. FOLLOWS COMMANDS. GENERALIZED WEAKNESS, WORSE IN LUE. WEAK, MUMBLED SPEECH. ABLE TO MAKE NEEDS KNOWN. LUNGS CLEAR, REMAINS ON RA. SR, RATE 80'S. BP STABLE. TWO MIDODRINES HELD, EVENING DOSE GIVEN FOR SBP<120. NO DIALYSIS THIS SHIFT, PLAN FOR DIALYSIS TOMORROW. CONSULT PLACED FOR POSSIBLE PERMACATH. CONTINUED ANTIBIOTIC TX. TUBE FEEDS AT GOAL, POOR APPETITE. FAMILY BROUGHT PUREE FOOD FROM HOME. PT TOOK ONLY A FEW BITES. WORKED c PT/OT/ST THIS SHIFT, ABLE TO SIT BEDSIDE FOR 10 SEC UNASSISTED. PT NEEDS ENCOURAGEMENT TO WORK c THERAPIES. RECTAL TUBE REMOVED, MEDIUM, RED, JELLY STOOLS EVER TWO HOURS. ATTENDS IN PLACE. DR ADHIKARI AWARE, ORDER TO LEAVE RECTAL TUBE OUT. PICC TO HERMANN, TRIALYSIS CATH TO [facility]. WILL CONTINUE PLAN OF CARE UNTIL REPORT TO ONCOMING NURSE.
--- NOTE | 2023-05-21 22:01 | NUR ---
ASSUMED CARE CARE WAS ASSUMED OF PT AT 1900, REPORT GIVEN BY NORM PFEIFFER. PT A/O X3-4, PT STATED THE YEAR WAS 2019. PT ABLE TO ANSWER OTHER QUESTIONS APPROPRIATELY AND MAKE NEEDS KNOWN WHEN STAFF IN ROOM. PT GENERALLY WEAK, DIFFICULTY MOVING LEFT SHOULDER WHICH IS CHRONIC. PT DENIES PAIN. PT ON RA, O2 SATS > 95%. CARDIAC MONITORING REFLECTS NSR, HR 80s. SBP 100s-110s. TF INFUSING THROUGH DOBHOFF AT GOAL. PICC TO [place] IN PLACE, PATENT WITH POSITIVE DRAWBACK. TRIALYSIS CATH TO RI IN PLACE. PT HAD LARGE, RED STOOL WITH LARGE AMOUNTS OF BLOOD CLOTS. PT DENIES ABD PAIN. NOTIFIED DR. ADHIKARI, ORDER TO REDRAW H&H, PENDING RESULTS.
[2023-05-21 22:40] LABS: Hemoglobin 5.9 g/dL (13.5-17.5)
--- NOTE | 2023-05-21 22:49 | NUR ---
Hgb CRITICAL PT'S Hgb VALUE 5.9, NOTIFIED DR. ADHIKARI. ORDERS TO TRANFUSE 2 UNITS PRBCs.
[2023-05-22] VITALS (102 sets, daily range): BP systolic 79–132; BP diastolic 30–78
[2023-05-22 00:21] LABS: International Normalized Ratio 2.51
[2023-05-22 01:08] LABS: Mean Platelet Volume 12.2 fL (9.1-12.4); Platelet Count 73 K/mm3 (150-400)
[2023-05-22] MEDS ORDERED: PANTOPRAZOLE SOD IV SCH (02:15)
[2023-05-22] MEDS ORDERED: [UNRECOGNIZED DRUG - OTHER] IV SCH (02:15)
[2023-05-22] MEDS ORDERED: Octreotide Acetate 500 MCG in NS 250 ML IV SCH (02:15)
[2023-05-22] MEDS ORDERED: Octreotide Acetate 50 MCG in NS 50 ML IV ONE (02:15)
[2023-05-22] MEDS ORDERED: Pantoprazole Sodium 40 MG in NS 50 ML IV SCH (02:25)
--- NOTE | 2023-05-22 02:26 | NUR ---
PT UPDATE DR. MYERS TO BEDSIDE AROUND 0200. PLAN FOR PT TO HAVE LOWER ENDOSCOPY TODAY. TF CHANGED TO WATER ONLY AT 65 mL/HR, PO FLUIDS OKAY AND ENCOURAGED PER DR. MYERS. SEE EMAR FOR NEW MEDICATION CHANGES. PT CONTINUES TO HAVE LARGE, RED/MAROON LOOSE STOOLS. BLOOD TRANSFUSING.
--- NOTE | 2023-05-22 05:42 | NUR ---
SHIFT SUMMARY PT REMAINS A/O X3-4. PT SLEEPING BUT AROUSES EASILY TO VERBAL STIMULI. PT REMAINS ON RA, LUNG NUNEZ CLEAR. PT HYPOTENSIVE, LEVOPHED RESTARTED D/T BP NOT IMPROVING AFTER 2 UNITS OF PRBCs AND 2 UNITS OF FFP ORDERED BY DR. ADHIKARI. SEE FLOWSHEET. HR 80s, CARDIAC MONITORING REFLECTS NSR. PT CONTINUES TO HAVE LARGE, LIQUID, MAROON/RED STOOLS AT LEAST EVERY 2 HOURS. PT DENIES ABDOMINAL PAIN/CRAMPING. HYPERACTIVE BOWEL TONES NOTED. DR. MYERS IN TO SEE PATIENT THIS MORNING AROUND 0200, SEE PREVIOUS NURSE NOTE. PROTONIX AND OCTREOTIDE GTT INFUSING PER EMAR. SMALL AMOUNT OF BLOOD NOTED AT PREVIOUS RIGHT GROIN ACCESS SITE REMOVAL. TRIALYSIS TO RIJ PATENT, DRESSING C/D/I. PICC PATENT WITH POSITIVE DRAWBACK. WATER INFUSING THROUGH DOBHOFF AT 65 mL/HR, TF D/Cd BY DR. MYERS, SEE PREVIOUS NURSE NOTE. PLAN FOR PT TO HAVE LOWER ENDOSCOPY BY DR. MYERS TODAY. FAMILY REMAINS AT BEDSIDE.
[2023-05-22 05:45] LABS: BASOPHILS ABSOLUTE AUTO 0.16 K/mm3 (0.00-0.23); BASOPHILS PERCENT AUTO 1 % (0-2); EOSINOPHILS ABSOLUTE AUTO 0.78 K/mm3 (0.00-0.68); EOSINOPHILS PERCENT AUTO 5 % (0-6); Hematocrit 22.9 % (37.0-53.0); Hemoglobin 7.6 g/dL (13.5-17.5); IMMATURE GRAN ABSOLUTE AUTO 0.23 K/mm3 (0.00-0.10); IMMATURE GRAN PERCENT AUTO 2 % (0-1); LYMPHOCYTES PERCENT AUTO 10 % (21-46); MONOCYTES ABSOLUTE AUTO 2.56 K/mm3 (0.16-1.47); MONOCYTES PERCENT AUTO 17 % (4-13); Mean Corpuscular HGB 29.2 pg (26.0-34.0); Mean Corpuscular HGB Conc 33.2 g/dL (31.5-36.5); Mean Corpuscular Volume 88 fL (80-100); Mean Platelet Volume 11.4 fL (9.1-12.4); NEUTROPHILS ABSOLUTE AUTO 9.76 K/mm3 (1.96-9.15); NEUTROPHILS PERCENT AUTO 65 % (41-73); Platelet Count 51 K/mm3 (150-400); RDW Coefficient Variation 18.1 % (11.7-14.2); RDW Standard Deviation 55.8 fL (35.1-46.3); White Blood Cell Count 14.99 K/mm3 (4.00-11.30)
[2023-05-22 06:12] LABS: International Normalized Ratio 1.89
[2023-05-22 06:14] LABS: Magnesium, Blood 2.7 mg/dL (1.6-2.4)
[2023-05-22 06:16] LABS: TOTAL CELLS COUNTED 2
[2023-05-22 06:18] LABS: Prothrombin Time Results 19.1 Sec (9.7-11.5)
[2023-05-22 06:19] LABS: Albumin, Blood 2.1 g/dL (3.4-5.0); Albumin/Globulin Ratio 0.5 (0.8-1.8); Alk Phos 121 U/L (50-136); Anion Gap 6 mmol/L (6-16); Aspartate Aminotrans (AST/SGOT 33 U/L (12-37); Bilirubin, Total 8.8 mg/dL (0.1-1.0); Blood Urea Nitrogen 54 mg/dL (8-24); Bun/Creatinine Ratio 12.4 (12.0-20.0); CO2, Blood 30 mmol/L (21-32); Calcium, Blood 8.5 mg/dL (8.5-10.1); Chloride, Blood 96 mmol/L (98-108); Creatinine, Blood 4.36 mg/dL (0.60-1.20); Glomerular Filtration Rate 16 (60-); Glucose, Blood 85 mg/dL (70-99); Potassium, Blood 4.6 mmol/L (3.5-5.5); Sodium, Blood 132 mmol/L (136-145); Total Protein, Blood 6.1 g/dL (6.4-8.2)
[2023-05-22 06:20] LABS: Alanine Aminotransfer (ALT/SGP <6 U/L (12-78)
--- NOTE | 2023-05-22 08:03 | NUR ---
ASSUMED CARE BEDSIDE REPORT FROM RAMU PFEIFFER AT 0700. PT RESTING IN BED. WAKES c VERBAL STIMULI. A&OX 3. FOLLOWS COMMANDS. STATES HE IS FEELING THE SAME YESTERDAY. DENIES PAIN. LUNGS CLEAR, ON RA. SR, RATE 80'S. LEVO GTT FOR MAP >60. PROTONIX AND OCTREOTIDE GTT INFUSING. 2+ EDEMA BLE, 1+ BUE. PLAN FOR DIALYSIS THIS SHIFT. ABD DISTENDED, FIRM, NON TENDER, BT X 4. NO BM OR BLOOD PER RECTUM AT THIS TIME. DOBHOFF TO RIGHT NARE, 65 CM, INFUSING WATER AT 65 ML/HR IN PREP FOR EGD THIS AFTERNOON, NPO, ENCOURAGE WATER INTAKE. ANURIC. PT AND FAMILY UPDATED ON PLAN OF CARE FOR TODAY. WILL CONTINUE ORDERED.
[2023-05-22] MEDS ORDERED: FentaNYL Citrate 50 MCG/ML 2 ML Injection IV PRN (10:20)
[2023-05-22] MEDS ORDERED: CeFAZolin Sodium 1,000 MG in NS 50 ML IV SCH (12:00)
[2023-05-22] MEDS ORDERED: Darbepoetin Alfa In Albumn Sol 40 MCG/0.4 ML SC SCH (16:00)
[2023-05-22] MEDS ORDERED: Lidocaine HCl 4% 5 ML SDA ONE (16:37)
[2023-05-22] MEDS ORDERED: NS 1,000 ML IV SCH ×2 (17:40→21:15)
--- NOTE | 2023-05-22 18:44 | NUR ---
SHIFT SUMMARY PT REMAINS A&OX 3. FOLLOWS COMMANDS. GENERALIZED WEAKNESS. CONTINUES TO HAVE MARGARETH RED BLOOD FROM RECTUM, INCONTINENT. RED, JELLY c CLOTS. DR MYERS CONSULTED. UPPER AND LOWER ENDOSCOPY. DOBHOFF REMOVED FOR PROCEDURE. OK TO REPLACE PER DR MYERS. NO TUBE FEEDS. PLAN TO TRANSFER FOR IR. 2 UNITS PRBCS ORDERED DURING PROCEDURE. SR, RATE 90'S. LEVO FOR MAP> 60, INCREASED DURING SCOPE, 14 MCG/MIN AT THIS TIME. PROTONIX AND OCTREOTIDE GTT CONTINUE. DIALYSIS THIS SHIFT, 2.5L OFF. FAMILY UPDATED ON PLAN OF CARE. WILL CONTINUE CARE PLAN UNTIL REPORT TO ONCOMING NURSE.
[2023-05-22] MEDS ORDERED: Propofol 10mg/ml 20 ml Vial (Procedural) IV ONE (20:15)
[2023-05-22] MEDS ORDERED: Midazolam HCl 1MG / ML 2ML Vial IM ONE (20:15)
[2023-05-22] MEDS ORDERED: Phenylephrine HCl 100 MCG/ML-NS 10MLSYR (1MG/10ML) IV ONE (20:15)
[2023-05-22 20:31] LABS: Hematocrit 16.2 % (37.0-53.0)
[2023-05-22 20:32] LABS: Hemoglobin 5.5 g/dL (13.5-17.5)
[2023-05-22 21:45] LABS: Hematocrit 22.3 % (37.0-53.0); Hemoglobin 7.5 g/dL (13.5-17.5)
--- NOTE | 2023-05-22 22:51 | NUR ---
ASSUMED CARE/TRANSFER NOTE PT A/O X3-4, ABLE TO ANSWER QUESTIONS APPROPRIATELY AND MAKE NEEDS KNOWN. PT DENIED PAIN AT THE BEGINNING OF SHIFT BUT AFTER BLOOD TRANSFUSIONS/IV INFUSION PT BEGAN TO COMPLAIN OF LEG DISCOMFORT BLE BECAME MORE EDEMATOUS. PT ON RA, O2 SATS > 95%. LUNG NUNEZ CLEAR/DIM. PT DENIED CP AND SOB. CARDIAC MONITORING REFLECTED NSR, HR 80s. PT HYPOTENSIVE, LEVOPHED GTT INFUSING FOR MAP GOAL OF 65. SEE FLOWSHEET. PT CONTINUED TO HAVE LARGE, LOOSE MAROON/RED BOWEL MOVEMENTS. TRIALYSIS TO RIJ AND PICC TO LUE PATENT WITH POSITIVE DRAWBACK. NO OOZING NOTED AT INSERTION SITES. BLE 3+ PITTING EDEMA. PT ANURIC. PT RECIEVED 1 UNIT OF PRBCs AT BEGINNING OF SHIFT AND Hgb WAS RECHECKED AFTER FIRST TRANFUSION. Hgb OF 5.[address] ADHIKARI NOTIFIED. NEXT UNIT OF PRBCs ORDERED TO TRANSFUSE WO AND ORDER ANOTHER UNIT OF PRBCs FOR 3 TOTAL TO BE GIVEN. Hgb RECHECK SHOWED VALUE OF 7.5. PT TOLERATED BLOOD TRANFUSIONS WELL, NO COMPLAINTS OF PAIN, SOB OR PAIN. PT REMAINED AFEBRILE. NS @ 100 STARTED FOR BP SUPPORT PER DR. ADHIKARI. PT TO TRANSFER TO [place], TRANSPORT PROVIDED BY [facility] [employer]. BEDSIDE REPORT GIVEN TO [facility] NURSE AT 2240. REPORT GIVEN TO RECIEVING NURSE AT [id number], AT 2245. PT LEFT WITH [facility] CREW AT 2249. 1 EXTRA BAG OF LEVOPHED AND 2 UNITS OF PRBCs SENT WITH [facility] TEAM. NS INFUSING @ 100 AND LEVOPHED INFUSING AT 14 MCG/MIN AT TIME OF DEPARTURE.
[2023-05-23] MEDS ORDERED: Pantoprazole Sodium 40 MG Injection IV SCH (06:00)
[2023-05-24 13:04] LABS: ALPHA-1-ANTITRYPSIN 82 mg/dL (90-200)
[2023-05-24 16:09] LABS: CERULOPLASMIN 11 mg/dL (15-30)
[2023-05-24 17:42] LABS: HBV CORE ANTIBODIES,TOTAL Negative (Negative)
[2023-05-24 17:43] LABS: HEPATITIS A ANTIBODIES, TOTAL Positive (Negative)
[2023-05-24 21:22] LABS: ANTI-NUCLEAR AB ANA,IGG ELISA None Detected (None Detected)
[2023-05-24 21:36] LABS: FACTIN SMOOTH MUSCLE,IGG ELISA 18 Units (0-19); MITOCHONDRIAL (M2) AB,IGG 5.9 Units (0.0-24.9)
[2023-05-31] MEDS ORDERED: PANTOPRAZOLE SO40 M2 PO (07:55)
[2023-05-31] MEDS ORDERED: MULVITA PO (07:55)
[2023-05-31] MEDS ORDERED: OXYC5 PO (14:03)
== END 2023-05-22 22:49 | disposition short-term general hospital (02) | DRG 870 ==
LOC: ER 12:07 → ICUE 19:02
PROVIDERS: Family Medicine; Hospitalist; Internal Medicine; Internal Medicine Critical Care Medicine; Internal Medicine Gastroenterology; Internal Medicine Nephrology; Student in an Organized Health Care Education/Training Program; ADMIT Internal Medicine
PROC: 3E033XZ Introduction of Vasopressor into Peripheral Vein, Percutaneous Approach (ICD-10-PCS; 2023-05-01)
PROC: 3E03329 Introduction of Other Anti-infective into Peripheral Vein, Percutaneous Approach (ICD-10-PCS; 2023-05-01)
PROC: 0BH17EZ Insertion of Endotracheal Airway into Trachea, Via Natural or Artificial Opening (ICD-10-PCS; 2023-05-01)
PROC: 02HV33Z Insertion of Infusion Device into Superior Vena Cava, Percutaneous Approach (ICD-10-PCS; 2023-05-01)
PROC: 5A1955Z Respiratory Ventilation, Greater than 96 Consecutive Hours (ICD-10-PCS; 2023-05-06)
PROC: 5A1D70Z Performance of Urinary Filtration, Intermittent, Less than 6 Hours Per Day (ICD-10-PCS; 2023-05-08)
PROC: 30233N1 Transfusion of Nonautologous Red Blood Cells into Peripheral Vein, Percutaneous Approach (ICD-10-PCS; principal; 2023-05-10)
PROC: 30233K1 Transfusion of Nonautologous Frozen Plasma into Peripheral Vein, Percutaneous Approach (ICD-10-PCS; 2023-05-10)
PROC: 30233J1 Transfusion of Nonautologous Serum Albumin into Peripheral Vein, Percutaneous Approach (ICD-10-PCS; 2023-05-10)
PROC: 30233M1 Transfusion of Nonautologous Plasma Cryoprecipitate into Peripheral Vein, Percutaneous Approach (ICD-10-PCS; 2023-05-10)
PROC: 0DH67UZ Insertion of Feeding Device into Stomach, Via Natural or Artificial Opening (ICD-10-PCS; 2023-05-14)
PROC: 30233R1 Transfusion of Nonautologous Platelets into Peripheral Vein, Percutaneous Approach (ICD-10-PCS; 2023-05-15)
PROC: 02HV33Z Insertion of Infusion Device into Superior Vena Cava, Percutaneous Approach (ICD-10-PCS; 2023-05-17)
PROC: 3E0336Z Introduction of Nutritional Substance into Peripheral Vein, Percutaneous Approach (ICD-10-PCS; 2023-05-17)
PROC: 0DJ08ZZ Inspection of Upper Intestinal Tract, Via Natural or Artificial Opening Endoscopic (ICD-10-PCS; 2023-05-22)
PROC: 0DJD8ZZ Inspection of Lower Intestinal Tract, Via Natural or Artificial Opening Endoscopic (ICD-10-PCS; 2023-05-22)
DX: A41.01 Sepsis due to Methicillin susceptible Staphylococcus aureus (principal); I60.9 Nontraumatic subarachnoid hemorrhage, unspecified; J18.9 Pneumonia, unspecified organism; J96.00 Acute respiratory failure, unspecified whether with hypoxia or hypercapnia; K72.00 Acute and subacute hepatic failure without coma; R57.8 Other shock; R65.21 Severe sepsis with septic shock; N17.0 Acute kidney failure with tubular necrosis; G92.8 Other toxic encephalopathy; K92.2 Gastrointestinal hemorrhage, unspecified; E87.21 Acute metabolic acidosis; D68.9 Coagulation defect, unspecified; D62 Acute posthemorrhagic anemia; E87.1 Hypo-osmolality and hyponatremia; T82.838A Hemorrhage due to vascular prosthetic devices, implants and grafts, initial encounter; R18.8 Other ascites; I82.612 Acute embolism and thrombosis of superficial veins of left upper extremity; Z99.11 Dependence on respirator [ventilator] status; I47.10 Supraventricular tachycardia, unspecified; F10.139 Alcohol abuse with withdrawal, unspecified; K70.10 Alcoholic hepatitis without ascites; D69.6 Thrombocytopenia, unspecified; E83.39 Other disorders of phosphorus metabolism; I35.0 Nonrheumatic aortic (valve) stenosis; E80.6 Other disorders of bilirubin metabolism; K63.5 Polyp of colon; E87.5 Hyperkalemia; E88.09 Other disorders of plasma-protein metabolism, not elsewhere classified; E16.2 Hypoglycemia, unspecified; K76.82 Hepatic encephalopathy; R94.5 Abnormal results of liver function studies; D72.10 Eosinophilia, unspecified; Z87.891 Personal history of nicotine dependence; Z11.52 Encounter for screening for COVID-19; Z79.899 Other long term (current) drug therapy
CPT/HCPCS: 0241U; 31500; 31720; 36415; 36430; 36556; 36569; 51702; 70450; 71045; 71250; 74176; 76705; 76770; 80048; 80053; 80069; 80074; 80076; 80202; 80400; 81001; 82010; 82103; 82105; 82140; 82247; 82248; 82330; 82390; 82533; 82607; 82728; 82746; 82803; 82947; 83010; 83540; 83550; 83605; 83615; 83690; 83735; 84100; 84145; 84439; 84443; 85014; 85018; 85025; 85027; 85049; 85384; 85610; 85730; 86015; 86038; 86381; 86704; 86708; 86850; 86900; 86901; 86923; 87040; 87070; 87077; 87086; 87106; 87147; 87186; 87205; 87340; 87633; 92526; 92610; 93005; 93010; 93306; 93970; 93971; 94002; 94003; 94640; 94664; 94760; 94762; 96361-59; 96365-59; 96366-59; 96368; 96375-59; 97112; 97166; 97530; 99291-25; A9270; C1751; C1752; C9113; G0480; J0132; J0456; J0690; J0834; J0881; J1940; J2001; J2060; J2185; J2250; J2354; J2371; J2597; J2704; J3010; J3370; J3411; J3430; J3475; J7030; J7040; J7050; J7060; J7070; P9012; P9016; P9035; P9045; P9047; P9053; P9059

== ENCOUNTER → 2023-05-01 | Outpatient (CLI) | payer OTHER ==
[2023-05-01 10:48] LABS: Hematocrit 28.6 % (37.0-53.0); Hemoglobin 8.9 g/dL (13.5-17.5); Mean Corpuscular HGB 28.5 pg (26.0-34.0); Mean Corpuscular HGB Conc 31.1 g/dL (31.5-36.5); Mean Corpuscular Volume 92 fL (80-100); NRBC ABSOLUTE 0.02 K/mm3 (0.00-0.02); NRBC Auto 0.1 /100 WBC (0.0-0.2); RDW Coefficient Variation 17.2 % (11.7-14.2); RDW Standard Deviation 57.4 fL (35.1-46.3); Red Blood Cell Count 3.12 M/mm3 (4.30-5.90); White Blood Cell Count 23.36 K/mm3 (4.00-11.30)
[2023-05-01 11:00] LABS: Albumin, Blood 1.7 g/dL (3.4-5.0); Albumin/Globulin Ratio 0.3 (0.8-1.8); Bilirubin, Total 6.3 mg/dL (0.1-1.0); Bun/Creatinine Ratio 10.7 (12.0-20.0); Calcium, Blood 8.4 mg/dL (8.5-10.1); Globulin, Blood 5.2 g/dL (2.2-4.0); Potassium, Blood 3.5 mmol/L (3.5-5.5); Total Protein, Blood 6.9 g/dL (6.4-8.2)
[2023-05-01 11:30] LABS: BAND PERCENT MAN 21 % (0-8); BASOPHILS PERCENT MAN 0 % (0-2); EOSINOPHILS PERCENT MAN 0 % (0-6); MONOCYTES PERCENT MAN 3 % (4-13); NEUTROPHILS ABSOLUTE MAN 22.65 K/mm3 (1.96-9.15); SEG NEUTROPHILS PERCENT MAN 76 % (41-73); TOTAL CELLS COUNTED 100
[2023-05-01 11:36] LABS: Mean Platelet Volume 12.3 fL (9.1-12.4); Platelet Count 65 K/mm3 (150-400)
== END ==
LOC: LAB SHORT 10:45 → LAB 10:45
PROVIDERS: Physician Assistant
DX: R53.83 Other fatigue (principal)
CPT/HCPCS: 80053; 85025